=== PATIENT | female | born 1940 | race Caucasian/White ===

== ENCOUNTER 2023-10-30 23:47 | Emergency (ER) | payer OTHER, SELFPAY ==
[2023-10-31 00:02] VITALS: BP 181/85
[2023-10-31 00:39] LABS: % Basophils 0.3 % (0-2); % Eosinophils 0.3 % (0-6); % Immature Granulocytes 0.3 % (0-0.5); % Monocytes 3.6 % (1.7-9.3); % Neutrophils 74.5 % (42.2-75.2); Absolute Lymphocytes 2.2 10^3/uL (1.2-3.4); Absolute Monocytes 0.4 10^3/uL (0.1-0.6); Absolute Neutrophils 7.9 10^3/uL (1.4-6.5); Hematocrit 38.7 % (37.0-47.0); Mean Corp Hgb Conc. 33.6 g/dL (33.0-37.0); Mean Corpuscular Hgb 29.5 pg (27.0-31.0); Mean Corpuscular Volume 87.8 fL (81.0-99.0); Mean Platelet Volume 9.5 fL (7.4-10.4); Nucleated Red Blood Cells % 0 %; Platelet Count 273 10^3/uL (130-400); Red Blood Cell Count 4.41 10^6/uL (4.20-5.40); Red Cell Dist. Width 13.6 % (11.5-14.5); White Blood Cell Count 10.6 10^3/uL (4.8-10.8)
--- NOTE | 2023-10-31 00:39 | ED.GENMED ---
History of Present Illness
<IBIS Greer - Last Filed: 10/31/23 04:42>
General
Chief Complaint: Abdominal Symptoms
Source: patient
Exam Limitations: none
Time Seen by Provider: 10/31/23 00:39
Nursing documentation reviewed up to this point in time: agreed with
History of Present Illness
History of Present Illness:
83 year old female presents for evaluation of intractable vomiting. 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 She reports that she was previously prescribed medical marijuana for shoulder pain, and slowly developed cyclical
vomiting over the last several years as a result. She used marijuana approximately 1 year ago which resulted in similar vomiting symptoms. Pt endorses marijuana use 48 hours ago which has resulted in intractable vomiting with 10+ bouts of vomiting
reported. Pt has been unable to keep solids and liquids down over this time. She has not taken any medications for her sx. She currently endorses mild epigastric abdominal pain and nausea. Denies fever, SOB, CP, changes in stool, and urinary sx.
Past History
<IBIS Greer - Last Filed: 10/31/23 04:42>
Past History
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
ED Past Surgical History: Appendectomy, Cardiac (Stents X 4), Cholecystectomy, Orthopedic (Right shoulder replacement), Urological and Other (tummy Tuck, Breast reduction)
Social History
Tobacco: Non-smoker
Alcohol: None
Drug: Marijuana
Personal:
Living: with family
Employment: Retired
Family History
Family History: Other (Noncontributory)
Review of Systems
<IBIS Greer - Last Filed: 10/31/23 04:42>
Review of Systems
Allergies reviewed?: Yes
Constitutional: Reports no symptoms
EENT: Reports no symptoms
Respiratory: Reports no symptoms
Cardiac: Reports no symptoms
ABD/GI: Reports abdominal pain, nausea and vomiting
: Reports no symptoms
Musculoskeletal: Reports no symptoms
Skin: Reports no symptoms
Neurological: Reports no symptoms
Endocrine: Reports no symptoms
Hematologic/Lymphatic: Reports no symptoms
Psychiatric: Reports no symptoms
Phy Exam
<ST PercyIA - Last Filed: 10/31/23 04:42>
General Physical Exam
General Presentation: well appearing
General age: appears stated age
General Skin: warm
General Habitus: normal
General Mental: alert
General Hydration: dry mucous membranes (mildly dry oral mucosa )
Cardiovascular Exam
Cardiovascular Exam: regular rate/rhythm
Pulmonary Exam
Pulmonary Exam: lungs clear and no respiratory distress
Gastrointestinal Exam
Gastrointestinal Exam: normal bowel sounds, non distended and no masses
Palpation: generalized: Minimal tenderness
Neurological Exam
Neurological Exam: alert and oriented x3
Skin Exam
Skin Exam: normal color and other (mildly dry oral mucosa )
Course
<ST PercyIA - Last Filed: 10/31/23 04:42>
Orders/Labs/Results
Orders:
Orders
10/31/23 00:09
Complete Blood Count/With Diff Urgent
Comprehensive Metabolic Panel Urgent
10/31/23 00:59
0.9% Sodium Chloride 1000 ml [Nss] 1,000 ml IV BOLUS
Abnormal Lab Results
10/31/23
00:09
Absolute Neuts (auto) 7.9 H 10^3/uL
(1.4-6.5)
Carbon Dioxide 19 L mmol/L
(22-30)
Glucose 165 H mg/dl
(70-99)
Calcium 10.3 H mg/dl
(8.4-10.2)
Albumin 5.1 H g/dl
(3.5-5.0)
10/31/23 00:09
10/31/23 00:09
Vital Signs
Initial and Last Documented VS:
Initial Vital Signs
Temp Pulse Resp BP Pulse Ox
99.2 F 82 20 181/85 96
10/31/23 00:02 10/31/23 00:02 10/31/23 00:02 10/31/23 00:02 10/31/23 00:02
Last Documented Vital Signs
Temp Pulse Resp BP Pulse Ox
99.2 F 74 14 169/81 95
10/31/23 00:02 10/31/23 03:15 10/31/23 03:15 10/31/23 01:00 10/31/23 01:00
<Larry Jenkins, DO - Last Filed: 10/31/23 03:36>
Orders/Labs/Results
Orders:
Orders
10/31/23 00:09
Complete Blood Count/With Diff Urgent
Comprehensive Metabolic Panel Urgent
10/31/23 00:59
0.9% Sodium Chloride 1000 ml [Nss] 1,000 ml IV BOLUS
Abnormal Lab Results
10/31/23
00:09
Absolute Neuts (auto) 7.9 H 10^3/uL
(1.4-6.5)
Carbon Dioxide 19 L mmol/L
(22-30)
Glucose 165 H mg/dl
(70-99)
Calcium 10.3 H mg/dl
(8.4-10.2)
Albumin 5.1 H g/dl
(3.5-5.0)
10/31/23 00:09
10/31/23 00:09
Vital Signs
Initial and Last Documented VS:
Initial Vital Signs
Temp Pulse Resp BP Pulse Ox
99.2 F 82 20 181/85 96
10/31/23 00:02 10/31/23 00:02 10/31/23 00:02 10/31/23 00:02 10/31/23 00:02
Last Documented Vital Signs
Temp Pulse Resp BP Pulse Ox
99.2 F 74 14 169/81 95
10/31/23 00:02 10/31/23 03:15 10/31/23 03:15 10/31/23 01:00 10/31/23 01:00
<IBIS Greer - Last Filed: 10/31/23 04:42>
MDM/Problems Addressed
Differential Diagnosis Includes:
cyclical vomiting, cannabinoid hyperemesis syndrome
<IBIS Greer - Last Filed: 10/31/23 04:42>
*Critical Care Note
Total Time (30-74mins, 75-104mins- exclusive of procedures): Not Applicable
ED Attending Note
<IBIS Greer - Last Filed: 10/31/23 04:42>
-
Portions of this chart may have been created with voice recognition software.� Occasional wrong word or��sound alike� substitutions may have occurred due to the inherent limitations of voice recognition software.
<Larry Jenkins DO - Last Filed: 10/31/23 03:36>
ED Attending Note
Patient seen and examined by attending physician: Yes
I performed the substantive portion of visit, reviewed & personally made and approve the management plan that is documented in note by myself or KATIE.: Yes
ED Attending Note:
83-year-old female presents with intractable vomiting. Patient smoked marijuana to celebrate her birthday. She does have a history of cyclical vomiting due to her marijuana use. She last used marijuana 1 year ago and at that time she did
experience vomiting. Patient states that she has had multiple bouts of vomiting after her most recent use. Denies chest pain or shortness of breath. Patient was seen in conjunction with the PA student. I have reviewed and agree with his history
and treatment plan. On my independent physical exam patient is awake, alert, and oriented. Patient states that her nausea has improved. She is tolerating liquids. She has urinated. Patient to be discharged home
Discharge Plan
Departure
Patient Disposition: Home (Routine Discharge)
Date of Disposition: 10/31/23
Time of Disposition: 03:36
Patient with high blood pressure during this ER visit?: Yes
Condition: Good
Discharge Problem:
Marijuana use, Nausea and vomiting
Instructions: Nausea and Vomiting, Adult (DC), Cannabis use disorder
Prescriptions:
No Action
lisinopril 20 MG tablet
20 mg PO BID
amlodipine 5 MG tablet
5 mg PO DAILY
levothyroxine 75 MCG tablet
75 mcg PO DAILY AT 0700
rosuvastatin 20 MG tablet
20 mg PO HS
potassium chloride 8 MEQ capsule, extended release
8 meq PO DAILY
fluoxetine 20 MG capsule
20 mg PO DAILY
clonazepam 0.5 MG tablet
0.5 mg PO BID
quetiapine 25 mg Tablet
25 mg PO DAILY
pregabalin 50 mg Capsule
50 mg PO BID
azelastine 137 mcg (0.1 %) Aerosol,[place]
1 spray intranasal BID
Rx Instructions:
both nostrils
pantoprazole 40 mg Tablet,Delayed Release (Dr/Ec)
40 mg PO DAILY 30 Days Qty: 30 0RF
mirtazapine 15 mg Tablet,Disintegrating
7.5 mg PO HS 30 Days Qty: 15 0RF
Rx Instructions:
1/2 tablet nightly x 30 days
prochlorperazine maleate [Compazine] 5 mg tablet
5 mg PO TID PRN (Reason: nausea and vomiting) 10 Days Qty: 30 0RF
acetaminophen [Tylenol] 325 mg tablet
650 mg PO Q4H Qty: 30 0RF
lidocaine 5 % adhesive patch,medicated
1 patch topical DAILY Qty: 30 0RF
Referrals:
Francois Thomas MD [Family Provider] -
Activity Restrictions/Additional Instructions:
It was a pleasure meeting you and taking part in your care. We hope for your continued healing and wellness.
Please read discharge instructions in their entirety. However, they are for general education and may not describe your exact diagnosis at discharge. Information on your ER visit and medical conditions were discussed with you along with appropriate
follow up information...
If indicated, please take your medications as instructed and indicated on discharge paperwork.
Please schedule a follow up appointment as directed. Call to schedule an appointment
Please return to the emergency department with ANY change in, persisting, or worsening of symptoms. If any of your symptoms do not improve, or persist, or become more severe within 6-12 hours, please return to the emergency department for further
care.
Please return to the emergency department if you develop a headache, neck pain/stiffness, fever greater than 100.4F, chest pain, shortness of breath, persistent nausea, vomiting, slurred speech, difficulty walking, numbness/tingling, weakness, signs
of infection or any other symptoms that are worrisome to you.
If you have any questions or concerns please do not hesitate to call the Hospital at
Interventions
Interventions:
*Risk Screen - Suicide Last Done: 10/31/23 00:02
*General Assessment Last Done: 10/31/23 00:02
*Neglect/Abuse Screening Last Done: 10/31/23 00:02
ED- Fall Risk Assessment Last Done: 10/31/23 00:02
*ED COVID-19 Vaccine History Last Done: 10/31/23 00:02
WD-Tazwsh-Anxzmeqhww Assessment Last Done: 10/31/23 01:02
Discharge Date and Time
Print Language: UKRAINIAN
[2023-10-31 00:42] LABS: ALT (SGPT) 12 U/L (0-35); AST (SGOT) 27 U/L (14-36); Alkaline Phosphatase 69 U/L (38-126); Calcium 10.3 mg/dl (8.4-10.2); Chloride 103 mmol/L (98-107); Glucose 165 mg/dl (70-99); Sodium 137 mmol/L (135-145); Total Bilirubin 0.8 mg/dl (0.2-1.3); Total Protein 7.7 g/dl (6.3-8.2); eGFR > 60.00
[2023-10-31 00:55] LABS: Albumin 5.1 g/dl (3.5-5.0); Blood Urea Nitrogen 16 mg/dl (7-17); Carbon Dioxide 19 mmol/L (22-30)
[2023-10-31 00:58] VITALS: BP 161/70
[2023-10-31 01:00] VITALS: BP 169/81
[2023-10-31 01:02] VITALS: BMI 24.7
[2023-10-31] MEDS: NSS 1000 IV (01:14)
[2023-10-31 04:26] VITALS: BP 153/62
== END 2023-10-31 04:53 | disposition home or self-care (01) ==
LOC: EMR 23:47
PROVIDERS: EMERGENCY PHYSICIAN Student in an Organized Health Care Education/Training Program; FAMILY PHYSICIAN Family Medicine
DX: F12.90 Cannabis use, unspecified, uncomplicated (principal); R11.2 Nausea with vomiting, unspecified; I25.10 Atherosclerotic heart disease of native coronary artery without angina pectoris; I10 Essential (primary) hypertension; E78.00 Pure hypercholesterolemia, unspecified; E03.9 Hypothyroidism, unspecified; F41.9 Anxiety disorder, unspecified; Z87.442 Personal history of urinary calculi; Z90.49 Acquired absence of other specified parts of digestive tract; Z95.5 Presence of coronary angioplasty implant and graft; Z96.611 Presence of right artificial shoulder joint
CPT/HCPCS: 99283; 96360; 80053; 85025

== ENCOUNTER 2023-11-22 10:53 | Inpatient (IN) | payer OTHER, SELFPAY ==
[2023-11-22] VITALS (13 sets, daily range): BP systolic 132–208; BP diastolic 72–110; BMI 22.7; BMI 24.1
[2023-11-22 06:54] LABS: % Basophils 0.4 % (0-2); % Eosinophils 0.1 % (0-6); % Immature Granulocytes 0.5 % (0-0.5); % Lymphocytes 18.8 % (20.5-51.1); % Monocytes 4.3 % (1.7-9.3); % Neutrophils 75.9 % (42.2-75.2); Absolute Basophils 0.1 10^3/uL (0-0.2); Absolute Immature Granulocytes 0.1 10^3/uL (0-0.05); Absolute Lymphocytes 3.7 10^3/uL (1.2-3.4); Absolute Monocytes 0.8 10^3/uL (0.1-0.6); Absolute Neutrophils 14.8 10^3/uL (1.4-6.5); Hematocrit 39.1 % (37.0-47.0); Hemoglobin 13.3 g/dL (12.0-16.0); Mean Corpuscular Hgb 29.6 pg (27.0-31.0); Mean Corpuscular Volume 87.1 fL (81.0-99.0); Mean Platelet Volume 9.6 fL (7.4-10.4); Nucleated Red Blood Cells % 0 %; Platelet Count 365 10^3/uL (130-400); Red Blood Cell Count 4.49 10^6/uL (4.20-5.40); Red Cell Dist. Width 13.8 % (11.5-14.5); White Blood Cell Count 19.5 10^3/uL (4.8-10.8)
[2023-11-22 07:11] LABS: AST (SGOT) 30 U/L (14-36); Albumin 5.1 g/dl (3.5-5.0); Alkaline Phosphatase 84 U/L (38-126); Blood Urea Nitrogen 16 mg/dl (7-17); Calcium 11.2 mg/dl (8.4-10.2); Carbon Dioxide 11 mmol/L (22-30); Chloride 108 mmol/L (98-107); Estimated Creatinine Clearance 32 ml/min; Glucose 229 mg/dl (70-99); Lipase 139 U/L (23-300); Potassium 4.4 mmol/L (3.5-5.1); Sodium 141 mmol/L (135-145); Total Bilirubin 0.7 mg/dl (0.2-1.3); Total Protein 7.7 g/dl (6.3-8.2); eGFR 44.91
[2023-11-22 07:20] LABS: Troponin I < 0.012 ng/ml
--- NOTE | 2023-11-22 07:30 | ED.GENMED ---
History of Present Illness
<Timo Gutierrez PA-C - Last Filed: 11/22/23 10:27>
General
Chief Complaint: Abdominal Pain
Time Seen by Provider: 11/22/23 07:12
History of Present Illness
History of Present Illness:
83-year-old female with history of coronary artery disease, hypertension, hyperlipidemia, and anxiety presents to the emergency department for evaluation of acute onset of central chest and upper abdominal pain for the past several hours. On my
exam she cannot tell me an exact time of onset. Pain radiates to the left shoulder. She is unable to tell me whether this is comparable to past angina. She also reports nausea without vomiting. Prior abdominal surgical history includes
appendectomy, cholecystectomy, and abdominoplasty. On evaluation she is hyperventilating and moaning in pain
Past History
<Timo Gutierrez PA-C - Last Filed: 11/22/23 10:27>
Past History
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
ED Past Surgical History: Appendectomy, Cardiac (Stents X 4), Cholecystectomy, Orthopedic (Right shoulder replacement), Urological and Other (tummy Tuck, Breast reduction)
Social History
Tobacco: Non-smoker
Alcohol: None
Drug: Marijuana
Personal:
Living: with family
Employment: Retired
Family History
Family History: Other (Noncontributory)
Review of Systems
<Timo Gutierrez PA-C - Last Filed: 11/22/23 10:27>
Review of Systems
Allergies reviewed?: Yes
All Other Systems: ROS reviewed and negative except as documented in HPI and ROS
Phy Exam
<Timo Gutierrez PA-C - Last Filed: 11/22/23 10:27>
Physical Exam
Physical Exam:
GEN: Visibly uncomfortable, hyperventilating position
Eyes: PERRLA, EOMs intact, no scleral icterus
HENT: NCAT, oral mucosa moist
Lungs: CTAB, no wheezes, rales, rhonchi, normal chest wall excursion
Cardiac: Tachycardic, regular
Abdomen: Slightly distended abdomen, no rigidity, no obvious
Neuro: AO x 3, bilateral upper and lower extremity strength is 5 out of 5 in all malik and symmetric
MSK: No gross deformity or ecchymosis. Radial pulses 2+ bilaterally, dorsalis pedis pulses 2+ bilaterally
Skin: No rashes, petechiae. Normal color, no pallor or jaundice.
Psych: Calm, cooperative, proper hygiene
Course
<Timo Gutierrez PA-C - Last Filed: 11/22/23 10:27>
Orders/Labs/Results
Orders:
Orders
11/22/23 06:42
EKG [Electrocardiogram (*1)] Urgent
Reason for Study: Chest Pain
11/22/23 06:43
EKG- Treatment ONCE
11/22/23 06:45
Complete Blood Count/With Diff Urgent
Comprehensive Metabolic Panel Urgent
Lipase Urgent
Salicylate Urgent
Comment: ADDON
Troponin I Urgent
11/22/23 07:29
CT Chest/abd/pelvis Angio W/wo Urgent
Comment:
Reason For Exam: chest/abd/shoulder pain, HTN
0.9% Sodium Chloride 1000 ml [Nss] 1,000 ml IV BOLUS
HYDROmorphone [Dilaudid] 0.5 mg IV NOW STA
Ondansetron Injectable [Zofran] 4 mg IV NOW STA
11/22/23 07:45
Lactic Acid Q4H
Comment: CANCEL 2nd LACTIC ACID IF 1st LACTIC ACID IS LESS THAN 2
Venous Blood Gas Urgent
%Oxygen/Room Air: 98
11/22/23 08:13
HYDROmorphone [Dilaudid] 0.5 mg IV NOW STA
11/22/23 08:16
Add On- LAB Urgent
Tests Added?: salicylate level
11/22/23 08:38
Diphenhydramine [Benadryl] 6.25 mg IV NOW STA
Fentanyl Citrate/Pf [Sublimaze] 50 mcg IV NOW STA
11/22/23 08:53
Lactated Ringers [Lr] 1,000 ml IV BOLUS
11/22/23 08:56
Ketamine 19 mg 0.9% Sodium Chloride 50 ml [Nss] 50 ml IV NOW
11/22/23 09:05
Ketamine 19 mg 0.9% Sodium Chloride 50 ml [Nss] 50 ml IV NOW
11/22/23 09:07
Piperacillin/Tazo 3.375 Gram [Zosyn] 3.375 gram in 50 ml IV NOW
11/22/23 09:14
Consult Surgery [SURGICAL CONSULT] Urgent
Consulting Provider: Reymundo Flanagan
Was physician already notified: Yes
11/22/23 10:03
Notify MD As Directed
Notify physician if: once med rec is completed TY
11/22/23 10:22
Add On- LAB Routine
Tests Added?: B12, Mag
11/22/23 10:30
Dextrose 5%/Water 1000 ml [D5w] 1,000 ml Sodium Bicarbonate 150 meq IV 150 mls/hr
11/22/23 11:00
Lactated Ringers [Lr] 1,000 ml IV Wide Open mls/hr
11/22/23 11:30
Lactic Acid Q4H
Comment: CANCEL 2nd LACTIC ACID IF 1st LACTIC ACID IS LESS THAN 2
11/22/23 16:00
BMP [Basic Metabolic Panel] Routine
Abnormal Lab Results
11/22/23 11/22/23
06:45 07:45
WBC 19.5 H 10^3/uL
(4.8-10.8)
Abs Immat Gran (auto) 0.1 H 10^3/uL
(0-0.05)
Absolute Neuts (auto) 14.8 H 10^3/uL
(1.4-6.5)
Absolute Lymphs (auto) 3.7 H 10^3/uL
(1.2-3.4)
Absolute Monos (auto) 0.8 H 10^3/uL
(0.1-0.6)
Neutrophils % 75.9 H %
(42.2-75.2)
Lymphocytes % 18.8 L %
(20.5-51.1)
VBG pH 7.51 H
(7.32-7.43)
VBG pCO2 19 L mmHg
(35-48)
VBG pO2 114 H mmHg
(30-50)
VBG HCO3 15.2 L mmol/L
(22-27)
Chloride 108 H mmol/L
(98-107)
Carbon Dioxide 11 L* mmol/L
(22-30)
Creatinine 1.2 H mg/dL
(0.6-1.0)
Glucose 229 H mg/dl
(70-99)
Lactic Acid 6.0 H* mmol/L
(0.7-2.0)
Calcium 11.2 H mg/dl
(8.4-10.2)
Albumin 5.1 H g/dl
(3.5-5.0)
Salicylates < 1.0 L mg/dl
(2.0-20.0)
11/22/23 06:45
Vital Signs
Initial and Last Documented VS:
Initial Vital Signs
Pulse Ox
97
11/22/23 06:41
Last Documented Vital Signs
Temp Pulse Resp BP Pulse Ox
97.8 F 102 15 158/85 95
11/22/23 08:35 11/22/23 09:45 11/22/23 09:45 11/22/23 09:37 11/22/23 09:50
<Jerry Lyon MD - Last Filed: 11/22/23 09:14>
Orders/Labs/Results
Orders:
Orders
11/22/23 06:42
EKG [Electrocardiogram (*1)] Urgent
Reason for Study: Chest Pain
11/22/23 06:43
EKG- Treatment ONCE
11/22/23 06:45
Complete Blood Count/With Diff Urgent
Comprehensive Metabolic Panel Urgent
Lipase Urgent
Salicylate Urgent
Comment: ADDON
Troponin I Urgent
11/22/23 07:29
CT Chest/abd/pelvis Angio W/wo Urgent
Comment:
Reason For Exam: chest/abd/shoulder pain, HTN
0.9% Sodium Chloride 1000 ml [Nss] 1,000 ml IV BOLUS
HYDROmorphone [Dilaudid] 0.5 mg IV NOW STA
Ondansetron Injectable [Zofran] 4 mg IV NOW STA
11/22/23 07:45
Lactic Acid Q4H
Comment: CANCEL 2nd LACTIC ACID IF 1st LACTIC ACID IS LESS THAN 2
Venous Blood Gas Urgent
%Oxygen/Room Air: 98
11/22/23 08:13
HYDROmorphone [Dilaudid] 0.5 mg IV NOW STA
11/22/23 08:16
Add On- LAB Urgent
Tests Added?: salicylate level
11/22/23 08:38
Diphenhydramine [Benadryl] 6.25 mg IV NOW STA
Fentanyl Citrate/Pf [Sublimaze] 50 mcg IV NOW STA
11/22/23 08:53
Lactated Ringers [Lr] 1,000 ml IV BOLUS
11/22/23 08:56
Ketamine 19 mg 0.9% Sodium Chloride 50 ml [Nss] 50 ml IV NOW
11/22/23 09:05
Ketamine 19 mg 0.9% Sodium Chloride 50 ml [Nss] 50 ml IV NOW
11/22/23 09:07
Piperacillin/Tazo 3.375 Gram [Zosyn] 3.375 gram in 50 ml IV NOW
11/22/23 09:14
Consult Surgery [SURGICAL CONSULT] Urgent
Consulting Provider: Reymundo Flanagan
Was physician already notified: Yes
11/22/23 10:03
Notify MD As Directed
Notify physician if: once med rec is completed TY
11/22/23 10:22
Add On- LAB Routine
Tests Added?: B12, Mag
11/22/23 10:30
Dextrose 5%/Water 1000 ml [D5w] 1,000 ml Sodium Bicarbonate 150 meq IV 150 mls/hr
11/22/23 11:00
Lactated Ringers [Lr] 1,000 ml IV Wide Open mls/hr
11/22/23 11:30
Lactic Acid Q4H
Comment: CANCEL 2nd LACTIC ACID IF 1st LACTIC ACID IS LESS THAN 2
11/22/23 16:00
BMP [Basic Metabolic Panel] Routine
Abnormal Lab Results
11/22/23 11/22/23
06:45 07:45
WBC 19.5 H 10^3/uL
(4.8-10.8)
Abs Immat Gran (auto) 0.1 H 10^3/uL
(0-0.05)
Absolute Neuts (auto) 14.8 H 10^3/uL
(1.4-6.5)
Absolute Lymphs (auto) 3.7 H 10^3/uL
(1.2-3.4)
Absolute Monos (auto) 0.8 H 10^3/uL
(0.1-0.6)
Neutrophils % 75.9 H %
(42.2-75.2)
Lymphocytes % 18.8 L %
(20.5-51.1)
VBG pH 7.51 H
(7.32-7.43)
VBG pCO2 19 L mmHg
(35-48)
VBG pO2 114 H mmHg
(30-50)
VBG HCO3 15.2 L mmol/L
(22-27)
Chloride 108 H mmol/L
(98-107)
Carbon Dioxide 11 L* mmol/L
(22-30)
Creatinine 1.2 H mg/dL
(0.6-1.0)
Glucose 229 H mg/dl
(70-99)
Lactic Acid 6.0 H* mmol/L
(0.7-2.0)
Calcium 11.2 H mg/dl
(8.4-10.2)
Albumin 5.1 H g/dl
(3.5-5.0)
Salicylates < 1.0 L mg/dl
(2.0-20.0)
11/22/23 06:45
Vital Signs
Initial and Last Documented VS:
Initial Vital Signs
Pulse Ox
97
11/22/23 06:41
Last Documented Vital Signs
Temp Pulse Resp BP Pulse Ox
97.8 F 102 15 158/85 95
11/22/23 08:35 11/22/23 09:45 11/22/23 09:45 11/22/23 09:37 11/22/23 09:50
<Timo Gutierrez PA-C - Last Filed: 11/22/23 10:27>
MDM/Problems Addressed
MDM/Problems Addressed:
82-year-old female presents with severe abdominal pain and vomiting, pain appears to be out of proportion to clinical exam findings. Initial concern for mesenteric adenitis particularly reinforced with marked lactic acidosis. CT angiogram was
obtained however this was grossly unremarkable. I did discuss case with general surgery and requested consultation at the bedside regarding the patient's intractable and uncontrolled pain in the setting of lactic acidosis with concern for ischemic
condition. Patient was admitted to the hospitalist service for further management, aggressive IV fluids and pain control given the emergency department, empiric antibiotics also ordered
<Timo Gutierrez PA-C - Last Filed: 11/22/23 10:27>
Comment
Comment:
EKG independently interpreted by me is markedly limited due to patient motion artifact displays a sinus tachycardia at a rate of 107, no overt ST elevations, QTc of 461
*Critical Care Note
Total Time (30-74mins, 75-104mins- exclusive of procedures): 35 minutes
comment:
Critical care time: 35 minutes
Critical care time was exclusive of: Separately billable procedures, treating other patients, and teaching time
Critical care was necessary to treat or prevent imminent or life-threatening deterioration of the following conditions: Lactic acidosis
Critical care time spent personally by me on the following activities:
[x] Review of old charts
[x] Obtaining history from patient or surrogate
[x] Ordering and review of the laboratory studies
[x] Ordering and review of radiographic studies
[x] Ordering and performing treatments and interventions
[x] Patient patient's response to treatment
[x] Development of treatment plan with patient or surrogate
<Timo Gutierrez PA-C - Last Filed: 11/22/23 10:27>
Update Note
Update Note:
0852: Case reviewed with general surgery. Discussed presentation consistent with mesenteric ischemia, marked lactic acidosis, intractable pain. Imaging reviewed by surgery, at this time no indication for surgery given grossly unremarkable
radiological findings. Recommends aggressive IV fluid resuscitation and repeat labs. Awaiting radiology read
ED Attending Note
<Timo Gutierrez PA-C - Last Filed: 11/22/23 10:27>
-
Portions of this chart may have been created with voice recognition software.� Occasional wrong word or��sound alike� substitutions may have occurred due to the inherent limitations of voice recognition software.
<Jerry Lyon MD - Last Filed: 11/22/23 09:14>
ED Attending Note
Patient seen and examined by attending physician: Yes
ED Attending Note:
I have seen and evaluated the patient with a [id number] encounter. I have spoken to the advance practicer provider and involved in the medical history, the physical exam, medical decision making.
Evaluation and management service: agree unless noted differently below.
Results interpretation: agree unless noted differently below.
Focused HPI: 83-year-old female with past medical history of hypertension, hyperlipidemia, CAD status post stents, colitis who presents to the emergency department for evaluation of abdominal pain. Patient reports pain is 'in her navel'--points to
the periumbilical region. She says it radiates diffusely. She says it started rather abruptly a few hours ago and has been constant and quite intense since then. She reports nausea but has not had any vomiting. Denies diarrhea or constipation.
Denies urinary symptoms. Denies fever or chills. Prior surgical history of appendectomy, cholecystectomy.
Physical exam: Hypertensive, tachycardic, tachypneic. Patient appears significantly uncomfortable writhing around in the bed. Her abdomen is somewhat firm, slightly distended with some tympany. She has mild diffuse tenderness somewhat worse left
upper quadrant. Mucous membranes appear moist.
Medical Decision Makin-year-old female presents for evaluation of acute onset severe abdominal pain has been constant for the past few hours. She appears in severe pain although abdominal exam only mildly tender. Will place an IV send labs
including a CBC and a CMP, lactate. Check an EKG and troponin. Concern for bowel ischemia will send for CT angio. Pain control and fluids. Reassess after the above.
Labs reviewed: CBC shows leukocytosis to 19.5. CMP shows metabolic acidosis with bicarb of 11, lactate greater than 6. Creatinine 1.2 up from baseline 0.9. Mild hyperglycemia. Troponin undetectable. CTA no clear acute pathology but clinical
concern based on appearance, history and lab abnormalities is for bowel ischemia. She does apparently have history of colitis thought to be potentially ischemic. Case discussed with general surgery for evaluation. No plans for OR, start with
aggressive medical management with fluids and pain control.
Discharge Plan
Departure
Patient Disposition: Admit
Date of Disposition: 11/22/23
Time of Disposition: 09:02
Admit to: IMU
Presentation/result/management discussed w/ accepting MD/DO: Hospitalist
Discharge Problem:
Intractable abdominal pain, Lactic acidosis, Metabolic acidosis with respiratory alkalosis
Prescriptions:
No Action
lisinopril 20 MG tablet
20 mg PO BID
amlodipine 5 MG tablet
5 mg PO DAILY
levothyroxine 75 MCG tablet
75 mcg PO DAILY AT 0700
rosuvastatin 20 MG tablet
20 mg PO HS
potassium chloride 8 MEQ capsule, extended release
8 meq PO DAILY
fluoxetine 20 MG capsule
20 mg PO DAILY
clonazepam 0.5 MG tablet
0.5 mg PO BID
quetiapine 25 mg Tablet
25 mg PO DAILY
pregabalin 50 mg Capsule
50 mg PO BID
azelastine 137 mcg (0.1 %) Aerosol,[place]
1 spray intranasal BID
Rx Instructions:
both nostrils
pantoprazole 40 mg Tablet,Delayed Release (Dr/Ec)
40 mg PO DAILY 30 Days Qty: 30 0RF
mirtazapine 15 mg Tablet,Disintegrating
7.5 mg PO HS 30 Days Qty: 15 0RF
Rx Instructions:
1/2 tablet nightly x 30 days
prochlorperazine maleate [Compazine] 5 mg tablet
5 mg PO TID PRN (Reason: nausea and vomiting) 10 Days Qty: 30 0RF
acetaminophen [Tylenol] 325 mg tablet
650 mg PO Q4H Qty: 30 0RF
lidocaine 5 % adhesive patch,medicated
1 patch topical DAILY Qty: 30 0RF
Referrals:
UNKNOWN - PT NOT,INTERVIEWE [Family Provider] -
Interventions
Interventions:
*Risk Screen - Suicide Last Done: 11/22/23 06:37
*General Assessment Last Done: 11/22/23 06:37
*Neglect/Abuse Screening Last Done: 11/22/23 06:37
*ED COVID-19 Vaccine History Last Done: 11/22/23 06:37
KN-Wqgmce-Afqeqhevly Assessment Last Done: 11/22/23 06:41
Discharge Date and Time
Print Language: SERBIAN
[2023-11-22] MEDS: ZOFRAN 4 MG IV (07:35)
[2023-11-22] MEDS: DILAUDID 0.5 MG IV ×2 (07:35→08:17)
[2023-11-22] MEDS: NSS 1000 IV ×2 (07:42→18:45)
[2023-11-22 07:58] LABS: Venous Blood Gas B.E. -5.4 mmol/L (-4 to +4); Venous Blood Gas HCO3 15.2 mmol/L (22-27); Venous Blood Gas O2 Sat % 99.3 %; Venous Blood Gas pCO2 19 mmHg (35-48); Venous Blood Gas pH 7.51 (7.32-7.43); Venous Blood Gas pO2 114 mmHg (30-50)
[2023-11-22 08:20] LABS: ALT (SGPT) 20 U/L (0-35)
[2023-11-22 08:42] LABS: Salicylate < 1.0 mg/dl (2.0-20.0)
[2023-11-22] MEDS: BENADRYL 6.25 MG IV (08:46)
[2023-11-22] MEDS: SUBLIMAZE 50 MCG IV (08:46)
[2023-11-22] MEDS: LR 1000 IV ×2 (08:57→10:25)
[2023-11-22] MEDS: KETAMINE 51.9 MG IV (09:37)
--- NOTE | 2023-11-22 10:01 | HPS.HSE ---
Family Physician
-
Family Physician: INTERVIEWE UNKNOWN - PT NOT
Chief Complaint
-
Abdominal pain
History of Present Illness
83-year-old female presents with abdominal pain. Pain radiated to the shoulder. She stated that the pain started last night. Got worse. More than 10 out of 10. No radiation. Nothing makes it better. She had a bowel movement yesterday. Also
had several episodes of vomiting today. No fever
Medical History
Past Medical History
Past Medical History: Reports Other
Additional Past Medical History:
Migraines, coronary artery disease, hypertension, hyperlipidemia, hemorrhoids, nephrolithiasis, fibromyalgia, osteoporosis, arthritis, hypothyroidism, legally blind in right eye, anxiety and depression
Past Surgical History: Reports Other
Additional Past Surgical History:
Breast reduction surgery, laparoscopic cholecystectomy
Social History
Tobacco: Non-smoker
Alcohol: None
Drug: None
Living: With Family
Family History
Family History: CAD (Mother in her 60s)
Allergies / Home Medications
Allergies reflects when Allergies were last updated in [employer].
Home Medications with original date entered in [employer]
Allergy/Medication List:
Med rec not completed
Review of Systems
-
A 12 point ROS was completed and negative except as noted: Yes
Cardiac: Denies Chest Pain
Abdomen/GI: Reports Abdominal Pain, Nausea and Vomiting; Denies Diarrhea
Physical Exam
Vital Signs
Vital Signs
Temp Pulse Resp BP Pulse Ox
97.8 F 102 15 158/85 95
11/22/23 08:35 11/22/23 09:45 11/22/23 09:45 11/22/23 09:37 11/22/23 09:50
Physical Exam
General: Appears in Distress and Pain
Respiratory: Clear
Cardiac: S1/S2 and Regular Rhythm
GI: Soft, Tender and Distended; No Normal Bowel Sounds
Musculoskeletal: No Edema
Neuro: Awake, AO x 3 and Nonfocal/grossly intact
Psych: Anxious
Laboratory Results
-
11/22/23 06:45
11/22/23 06:45
Laboratory Results
Lactic Acid 6.0 mmol/L (0.7-2.0) H* 11/22/23 07:45
Total Bilirubin 0.7 mg/dl (0.2-1.3) 11/22/23 06:45
AST 30 U/L (14-36) 11/22/23 06:45
ALT 20 U/L (0-35) 11/22/23 06:45
Alkaline Phosphatase 84 U/L (38-126) 11/22/23 06:45
Troponin I < 0.012 ng/ml 11/22/23 06:45
Lipase 139 U/L (23-300) 11/22/23 06:45
Data Reviewed
-
CT Scan: Report Reviewed by me (CAT scan chest abdomen [id number] aortic aneurysm or dissection. Mixed density atherosclerotic plaque throughout the thoracic and abdominal aorta. Coronary artery calcifications. Small hiatal hernia. 3
prominent nonobstructing calculi within the right renal hilum lower pole 1.2 cm. Diffuse o)
Impression/Plan
-
IMPRESSION/PLAN:
# Acute onset of abdominal pain
Metabolic acidosis likely secondary to lactic acidosis
IV fluids with bicarb
No evidence of vascular compromise on CT
Similar presentation in 2021
At that time it was felt to be secondary to cannabis hyperemesis
Concern for eccentric ischemia with elevated lactate
Follow-up with aggressive IV fluids, pain control
Follow labs
Surgery has already been consulted
# Acute kidney injury-continue IV fluids and follow creatinine
# Coronary artery disease with history of stents-unclear why she is not on aspirin will add. Continue aspirin and statin
# Hypertension-takes lisinopril and amlodipine as outpatient. Hold to keep blood pressure elevated for better perfusion
# Anxiety and depression-clonazepam, Remeron, Seroquel and fluoxetine
# Chronic pain with fibromyalgia-on Lyrica
# Hyperlipidemia/atherosclerosis-statin
# Insomnia-continue Remeron
# Hypothyroidism-continue Synthroid
# Osteopenia with compression deformity T6
# Nephrolithiasis
# Hiatal hernia
# Ex-smoker
# DVT prophylaxis- Lovenox
# CODE STATUS-full code
Meds need to be verified and reconciled.
Discussed with surgeon in detail
Discussed with ER provider
Discussed with nurse at bedside
Spoke to and updated regarding the plan.
Time over 75 min
[2023-11-22] MEDS: ZOSYN 50 IV ×3 (10:29→21:15)
[2023-11-22] MEDS: ATIVAN 0.25 MG IV (10:56)
[2023-11-22] MEDS: MORPHINE SULFATE 4 MG IV ×3 (10:57→21:15)
[2023-11-22 11:00] LABS: Magnesium 1.8 mg/dl (1.6-2.3)
[2023-11-22] MEDS: OFIRMEV 100 IV (11:04)
--- NOTE | 2023-11-22 11:18 | CM ---
Cm attempted to meet with patient to do IA but she was in too much pain. CM spoke to spouse, Bhupinder and dgtr in [place].
Prior to admit patient independent. Lives with spouse in one level condo with elevator access.
PCP Dr. Francois Thomas
Daren Hernandez
Patient's spouse is blind. tr states patient has been to [facility] recently for similar pain issues.
CM to follow for discharge needs.
PLAN: home .
--- NOTE | 2023-11-22 11:27 | CON.GS ---
Consultation
-
Reason for Consultation: Abdominal pain
Medical History
-
Chief Complaint: Abdominal pain
History of Present Illness:
Patient is an 83-year-old female who presents to the emergency department the acute onset of abdominal pain awakening her from sleep early this a.m. at approximately 5. History obtained through discussions with the patient and her via phone
call.
Her states that his complains of abdominal pain on a daily basis for many years now. She also has intermittent nausea and vomiting. He states that they have been unsure as to the etiology of her symptoms and so she just lives with it.
She takes multiple agents to help her sleep per her and therefore this enables her to sleep through her abdominal pain overnight. When she awoke this a.m. at 5:45 she felt as though her abdomen was distended, diffusely painful and had
intractable nausea and vomiting prompting emergency department evaluation.
Patient seen and examined and at this time she states that her pain continues essentially similar to presentation not worse but also not much better. She describes it as a constant pain in the center of the abdomen and feeling bloated/distended.
She has nausea and had small volume of vomiting. Last bowel movement was yesterday. states that she suffers from chronic constipation as well but patient states that for the past few weeks her bowels have been moving more regularly with
MiraLAX.
She states that this does feel similar to her episode back in 2021 when she was hospitalized for presumed ischemic colitis.
Past Medical History
Past Medical History: Other (Hypertension, hyperlipidemia, history of hemorrhoids, history of nephrolithiasis, fibromyalgia, osteoporosis, arthritis, hypothyroidism, legally blind in the right eye, anxiety/depression, previous history of cannabis
use patient's states in the last 6 months, gastroparesis?)
Past Surgical History: Cholecystectomy and Other (Appendectomy as a child, breast reduction)
Social History
Drug: Marijuana (Chronic cannabis user for many years however states she stopped 6 months ago)
Living: With Family
Family History
Family History: Reviewed & Noncontributory
Allergies / Home Medications
Allergy/AdvReac Type Severity Reaction Status Date / Time
codeine Allergy Unknown Itching Verified 10/31/23 00:02
�Medication �Instructions �Recorded �Confirmed �Type
amlodipine 5 mg tablet 5 mg PO DAILY Blood pressure 01/10/20 12/04/21 History
levothyroxine 75 mcg tablet 75 mcg PO DAILY AT 0700 Thyroid 01/10/20 12/06/21 History
lisinopril 20 mg tablet 20 mg PO BID Blood pressure 01/10/20 12/04/21 History
rosuvastatin 20 mg tablet 20 mg PO HS High cholesterol 01/10/20 12/04/21 History
fluoxetine 20 mg capsule 20 mg PO DAILY Mental 08/01/20 12/04/21 History
Health/Anxiety
potassium chloride 8 mEq 8 meq PO DAILY Electrolyte 08/01/20 12/04/21 History
capsule,extended release Repletion
clonazepam 0.5 mg tablet 0.5 mg PO BID Mental Health/Anxiety 01/21/21 12/06/21 History
azelastine 137 mcg (0.1 %) nasal 1 spray intranasal BID Allergies 12/04/21 12/06/21 History
spray
pregabalin 50 mg capsule 50 mg PO BID Neurological Condition 12/04/21 12/04/21 History
quetiapine 25 mg tablet 25 mg PO DAILY Mental 12/04/21 12/06/21 History
Health/Anxiety
mirtazapine 15 mg disintegrating 7.5 mg (1/2 x 15 mg) PO HS 30 days 12/07/21 Rx
tablet #15 tabs
pantoprazole 40 mg tablet,delayed 40 mg PO DAILY 30 days #30 tabs 12/07/21 Rx
release
prochlorperazine maleate 5 mg 5 mg PO TID PRN nausea and 12/07/21 Rx
tablet (Compazine) vomiting 10 days #30 tabs
acetaminophen 325 mg tablet 650 mg (2 x 325 mg) PO Q4H #30 tabs 03/02/23 Rx
(Tylenol)
lidocaine 5 % topical patch 1 patch topical DAILY #30 ea 03/02/23 Rx
Review of Systems
-
Unable to obtain full review of systems at this time due to: Acuity (Limited review of systems secondary to acute illness)
History Source: Patient
A 10 point review of systems was completed, and was negative except as per HPI.
Physical Exam
Vital Signs
Temp Pulse Resp BP Pulse Ox
97.8 F 112 21 161/77 95
11/22/23 08:35 11/22/23 10:45 11/22/23 10:45 11/22/23 10:30 11/22/23 10:45
11/21/23 11/22/23 11/23/23
06:59 06:59 06:59
Actual Weight 61.9 kg
Body Mass Index (BMI) 22.7
Lab Results
11/22/23 06:45
WBC 19.5 10^3/uL (4.8-10.8) H 11/22/23 06:45
Hgb 13.3 g/dL (12.0-16.0) 11/22/23 06:45
Hct 39.1 % (37.0-47.0) 11/22/23 06:45
Plt Count 365 10^3/uL (130-400) 11/22/23 06:45
Abs Immat Gran (auto) 0.1 10^3/uL (0-0.05) H 11/22/23 06:45
Neutrophils % 75.9 % (42.2-75.2) H 11/22/23 06:45
Physical Exam
General: Well Developed and Other (Acutely ill-appearing, uncomfortable but able to participate with history taking)
HEENT: Normocephalic, Anicteric and Moist Mucous Membranes
Respiratory: Non Labored Respirations
Cardiac: Regular Rhythm (Sinus tachycardia)
GI: Soft, Tender (Mildly diffusely tender but do not detect rebound, rigidity or guarding particularly with distraction during discussions. No involuntary guarding either.) and Distended (Patient is a bit distended and tight but she has
abdominoplasty which may account for some of these examination findings.)
Skin: Warm
Neuro: AO x 3
Psych: Calm
Data Reviewed
-
CT Scan: Image Personally Visualized and interpreted, Report Reviewed by me, Discussed with Physician, Discussed with Patient and Discussed with Family
Labs: Labs Reviewed by me, Discussed with Physician, Discussed with Patient and Discussed with Family
Assessment / Plan
-
Assessment: 83-year-old female with acute on what appears to be chronic abdominal pain with intractable nausea vomiting.
Reviewing outpatient medical record she may carry diagnosis of gastroparesis which is listed in the past having been diagnosed with this 4-5 yrs ago at [facility] however her and her did not confirm this.
Uncertain etiology to acute abdominal pain with metabolic acidosis but possible low flow state with reversible mesenteric ischemia. Carefully reviewed CT imaging. No thrombus within abdominal aorta and mesenteric vasculature all appear patenent.
No bowel wall thickening or edema of either SB or colon or stomach. No pneumatosis. No free air. No mesenteric or portal venous gas.
There does not appear to be any readily defined bowel compromise or immediate threat to warrant surgical intervention. Patient's examination is a bit distractible during our discussions and does not exhibit general peritonitis or involuntary
guarding.
Plan: Aggressive IV fluid resuscitation
Follow-up laboratory testing to guide resuscitation efforts
Recommend placement of a March catheter to monitor adequate I's and O's again and guide resuscitation efforts
Empiric antibiotics for possible GI source of transient mesenteric ischemia
Bowel rest
Will continue to closely follow
Lengthy discussions with patient's via phone call reviewing surgical impressions and plan as outlined above.
[2023-11-22 11:34] LABS: Lactic Acid 3.8 mmol/L (0.7-2.0)
[2023-11-22 12:59] LABS: Vitamin B12 338 pg/ml (239-931)
[2023-11-22] MEDS: SODIUM BICARBONATE 1150 MEQ IV (13:09)
--- NOTE | 2023-11-22 15:49 | W.PN.UPDATE ---
Update Note
Progress Note Update
Lactate noted improving.
Continue IVF and check labs at 4 pm.
[2023-11-22 16:35] LABS: Lactic Acid 1.5 mmol/L (0.7-2.0)
[2023-11-22 16:38] LABS: Blood Urea Nitrogen 13 mg/dl (7-17); Calcium 9.4 mg/dl (8.4-10.2); Carbon Dioxide 28 mmol/L (22-30); Chloride 103 mmol/L (98-107); Estimated Creatinine Clearance 41 ml/min; Glucose 163 mg/dl (70-99); Potassium 3.9 mmol/L (3.5-5.1); Sodium 136 mmol/L (135-145); eGFR > 60.00
[2023-11-22] MEDS: LOVENOX 40 MG SC (17:15)
[2023-11-22] MEDS: SODIUM BICARBONATE IV (18:29)
--- NOTE | 2023-11-22 20:45 | PTCARENOTE ---
Patient had orders for IMU status when admitted from ED. Patient with branch library clerk in place upon change of shift. Notified KEM Andino of orders for IMU level of care upon admission, came to see patient at bedside and orders were placed for
telemetry/monitored bed for patient, staying in 319-1 and stable. Patient on branch library clerk #[id number] running SR/ST. IVFs and IV abx maintained per MD orders. Call yadav within reach, will continue to monitor.
[2023-11-22] MEDS: MELATONIN 5 MG PO (21:53)
[2023-11-22] MEDS: SEROQUEL 25 MG PO (21:53)
--- NOTE | 2023-11-22 23:30 | PTCARENOTE ---
Temp 100.1 - asymptomatic, patient comfortable in bed and reporting that she is feeling slightly better now than at the start of our shift. Temp recheck 99.9. Will monitor.
[2023-11-23] VITALS (7 sets, daily range): BP systolic 113–162; BP diastolic 62–82; PULSE 61
[2023-11-23] MEDS: ZOSYN 50 IV ×4 (01:23→20:40)
[2023-11-23] MEDS: NSS 1000 IV ×2 (05:08→17:31)
[2023-11-23] MEDS: PROZAC 20 MG PO (09:27)
[2023-11-23] MEDS: MORPHINE SULFATE 4 MG IV (09:30)
--- NOTE | 2023-11-23 10:33 | W.PN.GS2 ---
Addendum entered and electronically signed by Reymundo Flanagan MD 11/23/23 10:53:
pt seen and examined with DEMAND PLANNING MANAGER, agree with documented progress note
pt states she feels much better
nausea resolving, denies abdominal pain.
not much appetite yet, no flatus or BM yet
AFVSS
NAD AAOx3
ABD: softly distended, completely nontender today
A/P: 83-year-old female who initially presented with acute on chronic abdominal pain, intractable nausea vomiting and metabolic/lactic acidosis.
questionable diagnosis reversible mesenteric ischemia although CT imaging without any GI pathologic findings
History of chronic abdominal pain, chronic nausea and possible gastroparesis
Clinical improvement and resolution of acidosis with resuscitation
Resume clear liquid diet and monitor for returning GI function
Original Note:
Today's Communication / Plan
-
CLD
Assessment / Plan
-
83-year-old female with acute on what appears to be chronic abdominal pain with intractable nausea vomiting.
Reviewing outpatient medical record she may carry diagnosis of gastroparesis which is listed in the past having been diagnosed with this 4-5 yrs ago at [facility] however her and her did not confirm this.
Uncertain etiology to acute abdominal pain with metabolic acidosis but possible low flow state with reversible mesenteric ischemia. CT without acute/concerning findings
Abdominal symptoms much improved with fluids/supportive care. Mild distention persists
Plan:
Trial of clear liquids
Empiric antibiotics for possible GI source of transient mesenteric ischemia
IVF as per primary team
Subjective Data
-
Date of Service: November 23, 2023
Patient seen and examined at bedside with Dr. Flanagan. Denies pain. Denies n/v. Passing flatus. No appetite as of yet.
Objective Data
-
Intake and Output
11/22/23 11/23/23 11/24/23
06:59 06:59 06:59
Intake Total 3250 / 3250
Output Total 2900 / 2900
Balance 350 / 350
Intake:
Oral fluids 0 / 0
IV fluids (Total) 3050 / 3050
IV piggybacks 200 / 200
Output:
Urine, March 2900 / 2900
Other:
How many times incontinent 1
SATURATED amount urine
Vital Signs
Temp Pulse Resp BP Pulse Ox
98.8 F 71 18 113/66 92
11/23/23 07:30 11/23/23 07:30 11/23/23 07:30 11/23/23 07:30 11/23/23 07:30
Calcium 9.4 mg/dl (8.4-10.2) D 11/22/23 16:16
Magnesium 1.8 mg/dl (1.6-2.3) 11/22/23 06:45
Total Bilirubin 0.7 mg/dl (0.2-1.3) 11/22/23 06:45
AST 30 U/L (14-36) 11/22/23 06:45
ALT 20 U/L (0-35) 11/22/23 06:45
Alkaline Phosphatase 84 U/L (38-126) 11/22/23 06:45
Total Protein 7.7 g/dl (6.3-8.2) 11/22/23 06:45
Albumin 5.1 g/dl (3.5-5.0) H 11/22/23 06:45
Physical Exam
-
NAD
ABD soft, nt, mildly distended
[2023-11-23 11:14] LABS: Calcium 8.3 mg/dl (8.4-10.2); Carbon Dioxide 24 mmol/L (22-30); Estimated Creatinine Clearance 46 ml/min; Magnesium 1.4 mg/dl (1.6-2.3); Potassium 2.9 mmol/L (3.5-5.1); eGFR > 60.00
[2023-11-23 11:24] LABS: Blood Urea Nitrogen 7 mg/dl (7-17); Chloride 108 mmol/L (98-107); Glucose 91 mg/dl (70-99); Sodium 137 mmol/L (135-145)
[2023-11-23 11:36] LABS: Hematocrit 30.7 % (37.0-47.0); Hemoglobin 10.2 g/dL (12.0-16.0); Mean Corp Hgb Conc. 33.2 g/dL (33.0-37.0); Mean Corpuscular Hgb 29.9 pg (27.0-31.0); Mean Platelet Volume 9.6 fL (7.4-10.4); Platelet Count 200 10^3/uL (130-400); Red Blood Cell Count 3.41 10^6/uL (4.20-5.40); Red Cell Dist. Width 13.6 % (11.5-14.5); White Blood Cell Count 7.2 10^3/uL (4.8-10.8)
[2023-11-23] MEDS: MAGNESIUM SULFATE 50 IV (11:58)
[2023-11-23] MEDS: KCL 270 MEQ IV (11:58)
--- NOTE | 2023-11-23 12:56 | W.PN.HOSP.TC ---
Today's Communication/Plan
-
Clear liquid diet
Cut back on IV fluids
Replace magnesium and potassium
Encourage out of bed
Assessment / Plan
Assessment / Plan
CVS: S1-S2 normal
Chest: CTA B/L
Abdomen: Soft, NT / Bowel sounds present
Extremities: No edema, normal pulses
# Acute onset of abdominal pain
Metabolic acidosis likely secondary to lactic acidosis
No evidence of vascular compromise on CT
Similar presentation in 2021
At that time it was felt to be secondary to cannabis hyperemesis. Patient does not use anymore.
Concern for eccentric ischemia with elevated lactate
Abdominal exam is completely back to normal today. Labs are normal also
Surgery eval appreciated
Clear liquids started
# Hypokalemia and hypomagnesemia-replace
# Acute kidney injury-Resolved , continue lower rate IV fluids and follow creatinine
# Coronary artery disease with history of stents-unclear why she is not on aspirin will add. Continue aspirin and statin
# Hypertension-takes lisinopril and amlodipine as outpatient. Hold to keep blood pressure elevated for better perfusion
# Anxiety and depression-clonazepam, Remeron, Seroquel and fluoxetine
# Chronic pain with fibromyalgia-on Lyrica
# Hyperlipidemia/atherosclerosis-statin
# Insomnia-continue Remeron
# Hypothyroidism-continue Synthroid
# Osteopenia with compression deformity T6
# Nephrolithiasis
# Hiatal hernia
# Ex-smoker
# DVT prophylaxis- Lovenox
# CODE STATUS-Full code
Called - NO VM set up.
Spoke to daughter Grisel .
Anticipated Discharge: 24 - 48 hours
Subjective/Interval History
-
Date of Service: November 23, 2023
Objective Data
-
Labs:
Laboratory Results
11/23/23
10:25
WBC 7.2
Hgb 10.2 L D
Hct 30.7 L
Plt Count 200 D
Sodium 137
Potassium 2.9 L D
Chloride 108 H
Carbon Dioxide 24
BUN 7
Creatinine 0.8
Glucose 91
Calcium 8.3 L
Vital Signs:
Vital Signs
Temp Pulse Resp BP Pulse Ox
98.4 F 72 18 145/67 92
11/23/23 11:33 11/23/23 11:33 11/23/23 11:33 11/23/23 11:33 11/23/23 11:33
I&O
11/22/23 11/23/23 11/24/23
06:59 06:59 06:59
Intake Total 3250 / 3250
Output Total 2900 / 2900
Balance 350 / 350
[2023-11-23 13:38] LABS: Iron 133 ug/dl (37-170)
[2023-11-23 13:51] LABS: Percent Saturation 46 % (20-50); Total Iron Binding Capacity 288 ug/dl (265-497)
[2023-11-23] MEDS: ASPIR LOW (ENTERIC COATED) 81 MG PO (13:58)
[2023-11-23 15:48] LABS: Ferritin 14.2 ng/ml (11.1-264.0)
[2023-11-23] MEDS: LOVENOX 40 MG SC (17:29)
[2023-11-23] MEDS: SEROQUEL 25 MG PO (21:33)
[2023-11-24] VITALS (8 sets, daily range): BP systolic 131–177; BP diastolic 70–99; PULSE 89–104; O2SAT 96
[2023-11-24] MEDS: ZOSYN 50 IV ×4 (03:02→21:32)
[2023-11-24] MEDS: ASPIR LOW (ENTERIC COATED) 81 MG PO (08:51)
[2023-11-24] MEDS: PROZAC 20 MG PO (08:51)
[2023-11-24] MEDS: PROTONIX IV 40 MG IV ×2 (08:52→21:31)
--- NOTE | 2023-11-24 10:43 | W.PN.GS2 ---
Addendum entered and electronically signed by Rolly Claros MD 11/24/23 16:32:
I saw and examined the patient independently.
The Batteryman's note was reviewed and I agree with the note, assessment and plan except where noted below.
Comment: 83-year-old female acute on chronic abdominal pain. Clinically improving and seems to be back to her baseline.
No general surgery infection at this time.
Agree with continuing a PPI.
[place] diet.
Care per gastroenterology.
Will sign off for now, please call with any questions or concerns.
Original Note:
Today's Communication / Plan
-
Ok for bland diet
Assessment / Plan
-
83-year-old female who initially presented with acute on chronic abdominal pain, intractable nausea vomiting and metabolic/lactic acidosis. Questionable diagnosis reversible mesenteric ischemia although CT imaging without any GI pathologic findings.
Clinical improvement and resolution of acidosis with resuscitation
History of chronic abdominal pain/chronic nausea with previous cyclical vomiting and cannabinoid hyperemesis (no recent cannabis use). She reports multiple hospitalizations for the same.
AFVSS
No abdominal tenderness present, but she does report epigastric discomfort with eating and mild nausea today. No further vomiting.
--Ok for bland diet from surgical perspective
--Continue PPI
--Would recommend follow up with gastroenterology
No surgery planned. Will follow peripherally. Please call with questions concerns.
Subjective Data
-
Date of Service: November 24, 2023
Patient seen and examined at bedside with Dr. Claros. Daughter Grisel on speaker phone to assist with history. Patient notes epigastric discomfort with meals which is her baseline. Having some nausea today but minimal. No vomiting reported.
Objective Data
-
Intake and Output
11/23/23 11/24/23 11/25/23
06:59 06:59 06:59
Intake Total 3250 / 3250 1100 / 1100
Output Total 2900 / 2900 3375 / 3375
Balance 350 / 350 -2275 / -2275
Intake:
Oral fluids 0 / 0 600 / 600
IV fluids (Total) 3050 / 3050 500 / 500
IV piggybacks 200 / 200
Output:
Urine, March 2900 / 2900 3375 / 3375
Other:
How many times incontinent 1
SATURATED amount urine
Vital Signs
Temp Pulse Resp BP Pulse Ox
98 F 93 21 151/96 96
11/24/23 07:30 11/24/23 07:30 11/24/23 07:30 11/24/23 07:30 11/24/23 07:30
Lab Results
11/23/23 10:25
Calcium 8.3 mg/dl (8.4-10.2) L 11/23/23 10:25
Magnesium 1.4 mg/dl (1.6-2.3) L 11/23/23 10:25
Total Bilirubin 0.7 mg/dl (0.2-1.3) 11/22/23 06:45
AST 30 U/L (14-36) 11/22/23 06:45
ALT 20 U/L (0-35) 11/22/23 06:45
Alkaline Phosphatase 84 U/L (38-126) 11/22/23 06:45
Total Protein 7.7 g/dl (6.3-8.2) 11/22/23 06:45
Albumin 5.1 g/dl (3.5-5.0) H 11/22/23 06:45
Physical Exam
-
NAD
ABD soft, nt, nd, no rebound/rigidity/guarding
--- NOTE | 2023-11-24 10:48 | W.PN.HOSP.TC ---
Addendum entered and electronically signed by Karie Bowens MD 11/25/23 12:32:
Physical Exam
General: She is comfortable with no distress. She does not have pain.
Respiratory: Clear
Cardiac: S1/S2 and Regular Rhythm
GI: Soft, no tenderness or distention No Normal Bowel Sounds
Musculoskeletal: No Edema
Skin: No rash or bruising
Neuro: Awake, AO x 3 and Nonfocal/grossly intact
Psych: Calm and pleasant
Addendum
BP is high, will place pt back k on oral BP meds.
End
Original Note:
Today's Communication/Plan
-
Re-start Oral BP medications
Add PRN IV Hydralazine
Add IV PPI
Add PRN IV Compazine
c/w IVF
GI consult
Assessment / Plan
Assessment / Plan
CVS: S1-S2 normal
Chest: CTA B/L
Abdomen: Soft, NT / Bowel sounds present
Extremities: No edema, normal pulses
# Sepsis POA with leukocytosis/ lactic acidosis, temp at 100.1, tachycardia
Possible enteritis/ gastritis ?
Acute onset of abdominal pain, acute on chronic nausea, heartburn
Metabolic acidosis likely secondary to lactic acidosis
No evidence of vascular compromise on CT
Similar presentation in 2021
At that time it was felt to be secondary to cannabis hyperemesis. Patient does not use anymore.
Concern for eccentric ischemia with elevated lactate
Abdominal exam is non tender, not distended Labs are normal also
She reported not tolerating clear diet
Will ask GI to evaluate, she reports hx of chronic vomiting,? cyclic vomiting
No horne for surgery per surgical team
Empiric IV ABx
Add PRN IV Compazine, IV PPI
# Hypokalemia and hypomagnesemia-replace
# Acute kidney injury-Resolved , continue lower rate IV fluids and follow creatinine
# Coronary artery disease with history of stents-unclear why she is not on aspirin will add. Continue aspirin and statin
# HTN urgency
No headache or chest pain
Known primary Hypertension-takes lisinopril and amlodipine as outpatient.
Will restart her OP meds.
Add PRN Hydralazine
# Anxiety and depression-clonazepam, Remeron, Seroquel and fluoxetine
# Chronic pain with fibromyalgia-on Lyrica
# Hyperlipidemia/atherosclerosis-statin
# Insomnia-continue Remeron
# Hypothyroidism-continue Synthroid
# Osteopenia with compression deformity T6
# Nephrolithiasis
# Hiatal hernia
# Ex-smoker
# DVT prophylaxis- Lovenox
# CODE STATUS-Full code
Total time spent to see the patient, examine the patient on the floor, review data and lab results, discuss treatment plan with patient, nursing staff around 55 minutes.
Anticipated Discharge: > 48 hours
Subjective/Interval History
-
Date of Service: November 24, 2023
She reports heartburn, chronic nausea
central abdominal pain
No chest pain
Objective Data
-
Labs:
Laboratory Results
11/24/23
09:32
Sodium Pending
Potassium Pending
Chloride Pending
Carbon Dioxide Pending
BUN Pending
Creatinine Pending
Glucose Pending
Calcium Pending
Vital Signs:
Vital Signs
Temp Pulse Resp BP Pulse Ox
98 F 93 21 151/96 96
11/24/23 07:30 11/24/23 07:30 11/24/23 07:30 11/24/23 07:30 11/24/23 07:30
I&O
11/23/23 11/24/23 11/25/23
06:59 06:59 06:59
Intake Total 3250 / 3250 1100 / 1100
Output Total 2900 / 2900 3375 / 3375
Balance 350 / 350 -2275 / -5
[2023-11-24 11:29] LABS: Blood Urea Nitrogen 6 mg/dl (7-17); Calcium 9.3 mg/dl (8.4-10.2); Carbon Dioxide 19 mmol/L (22-30); Chloride 104 mmol/L (98-107); Estimated Creatinine Clearance 53 ml/min; Glucose 107 mg/dl (70-99); Magnesium 1.9 mg/dl (1.6-2.3); Potassium 3.4 mmol/L (3.5-5.1); Sodium 135 mmol/L (135-145); eGFR > 60.00
[2023-11-24] MEDS: COMPAZINE 10 MG IV (11:50)
[2023-11-24] MEDS: MAGNESIUM SULFATE 100 IV (12:10)
[2023-11-24] MEDS: NORVASC 5 MG PO (12:23)
[2023-11-24] MEDS: D5/0.9% SODIUM CHLORIDE 1000 IV (12:55)
[2023-11-24] MEDS: KCL 270 MEQ IV (12:56)
[2023-11-24] MEDS: APRESOLINE 5 MG IV (13:03)
--- NOTE | 2023-11-24 13:31 | CON.GI ---
Addendum entered and electronically signed by Zo Elizabeth MD 11/24/23 18:37:
I personally performed a history and physical exam of the patient and discussed management with the resident. I reviewed the resident's note and agree with the documented findings and plan of care HPI/CC.
83-year-old female past medical history of multiple episodes of abdominal pain, nausea, vomiting. She had a similar episode in 2021 and there was a question of ischemic colitis versus cannabinoid induced hyperemesis. She also had an endoscopy in
[address] Gong which showed a small hiatal hernia, otherwise was overall normal. She now presents with similar symptoms and there was concerned about mesenteric ischemia as she had a profound lactic acidosis. A CTA chest abdomen and pelvis
was done with no evidence of mesenteric ischemia. Surgery has seen the patient and due to the lack of CT findings, improvement in her lactic acidosis, there is no need for surgery at this time. GI was asked to help with the abdominal pain, nausea,
vomiting. I discussed with the patient and recommended upper endoscopy risks including but not limited to bleeding, infection, perforation explained to the patient as well as the daughter on the phone. I explained my rationale for recommending it
as she had ongoing symptoms and unable to be discharged and she could have an esophageal ulcer, esophagitis, gastric ulcer that could explain her symptoms. The patient and daughter declined the procedure as they want to be conservative. There was
a concern as well that her hemoglobin had dropped from 13-10 but repeat today is 13.8. She also came in with a leukocytosis which has improved. Daughter also states that patient had a recent endoscopy done but unclear when it was done or how
recently. It possibly was done at [facility] and I did request these records. At this time, we will increase her PPI to twice a day, add Carafate and see how her symptoms progress. I did discuss the option of pursuing endoscopy if she does not
improve. Another option would be doing a small bowel follow-through. Additional possible diagnosis include but not limited to gastoparesis, cyclical vomiting syndrome (previously diagnosed); no longer using MJ. She does have an outpatient
gastroenterolog the daughter was not sure of the name it is not here at [facility] and she will follow up with them upon discharge.
Original Note:
Medical History
Chief Complaint / HPI
Chief Complaint: abdominal pain
History of Present Illness:
Patient is a 83yo F with PMH of CAD (s/p stent x4), HTN, hyperlipidemia, and CVS who presented with acute on chronic upper abdominal pain and persistent nausea/vomiting. She has had these symptoms for over a year but got worse during the past 2
days. Pt had metabolic/lactic acidosis on admission which is now resolved. Abd CT was not remarkable. Seems pt had a similar episode in 2021 which was attributed to cannabis use. Patient denies using cannabis for the past 6 months.
Past Medical History
Past Medical History: CAD, Fibromyalgia, HTN, Hypercholesterolemia, Hypothyroidism and Other (Hemorrhoids, nephrolithiasis, osteoporosis)
Past Surgical History: Cholecystectomy and Other (Breast reduction surgery)
Social History
Tobacco: Non-Smoker
Alcohol: None
Drug: None
Living: With Family
Family History
Family History: CAD
Allergies / Home Medications
Allergy/AdvReac Type Severity Reaction Status Date / Time
codeine Allergy Unknown Itching Verified 10/31/23 00:02
�Medication �Instructions �Recorded
amlodipine 5 mg tablet 5 mg PO DAILY Blood pressure 01/10/20
lisinopril 20 mg tablet 20 mg PO BID Blood pressure 01/10/20
rosuvastatin 20 mg tablet 20 mg PO HS High cholesterol 01/10/20
fluoxetine 20 mg capsule 20 mg PO DAILY Mental 08/01/20
Health/Anxiety
potassium chloride 8 mEq 8 meq PO DAILY Electrolyte 08/01/20
capsule,extended release Repletion
azelastine 137 mcg (0.1 %) nasal 1 spray intranasal BIDPRN PRN 12/04/21
spray allergies
quetiapine 25 mg tablet 25 mg PO HS Mental Health/Anxiety 12/04/21
gabapentin 300 mg capsule 600 mg PO HS Neurological Condition 11/22/23
levothyroxine 50 mcg tablet 50 mcg PO DAILY Thyroid 11/22/23
zolpidem 12.5 mg tablet,extended 12.5 mg PO HSPRN PRN sleep 11/22/23
release,multiphase
pantoprazole 40 mg tablet,delayed 40 mg PO DAILY Gastrointestinal 11/23/23
release Issue
Review of Systems
-
History Source: Patient
All other systems: A 12 pt ROS was Negative except as stated above in HPI
Abdomen/GI: Reports Abdominal Pain (Upper abdominal pain and heartburn) and Nausea; Denies Vomiting
Vital Signs
Temp Pulse Resp BP Pulse Ox
98 F 91 18 177/75 96
11/24/23 11:00 11/24/23 11:00 11/24/23 11:00 11/24/23 13:03 11/24/23 11:00
Physical Exam
Exam
General: Well Developed and Pain
HEENT: Normocephalic and Anicteric
Respiratory: Clear
Cardiac: S1/S2 and Regular Rhythm
GI: Soft, Non Tender, Non Distended and Normal Bowel Sounds
Neuro: Awake, Alert, Oriented and AO x 3
Results
WBC 7.2 10^3/uL (4.8-10.8) 11/23/23 10:25
Hgb 10.2 g/dL (12.0-16.0) L D 11/23/23 10:25
Hct 30.7 % (37.0-47.0) L 11/23/23 10:25
MCV 90.0 fL (81.0-99.0) 11/23/23 10:25
Plt Count 200 10^3/uL (130-400) D 11/23/23 10:25
Absolute Neuts (auto) 14.8 10^3/uL (1.4-6.5) H 11/22/23 06:45
Sodium 135 mmol/L (135-145) 11/24/23 09:32
Potassium 3.4 mmol/L (3.5-5.1) L 11/24/23 09:32
Chloride 104 mmol/L (98-107) 11/24/23 09:32
Carbon Dioxide 19 mmol/L (22-30) L 11/24/23 09:32
BUN 6 mg/dl (7-17) L 11/24/23 09:32
Creatinine 0.7 mg/dL (0.6-1.0) 11/24/23 09:32
Calcium 9.3 mg/dl (8.4-10.2) 11/24/23 09:32
Total Bilirubin 0.7 mg/dl (0.2-1.3) 11/22/23 06:45
AST 30 U/L (14-36) 11/22/23 06:45
ALT 20 U/L (0-35) 11/22/23 06:45
Alkaline Phosphatase 84 U/L (38-126) 11/22/23 06:45
Lipase 139 U/L (23-300) 11/22/23 06:45
Diagnostic Image Results:
1.No aortic aneurysm or dissection. Mixed density atherosclerotic plaque throughout the thoracic and abdominal aorta. Coronary artery calcifications.
2. Small hiatal hernia.
3. There are 3 prominent nonobstructing calculi within the right renal hilum/lower pole measuring up to 1.2 cm, similar to prior.
4. Diffuse osteopenia with unchanged compression deformity of the T6 vertebral body.
Prior GI Procedures: Most recent EGD and colonoscopy were done at [facility].
EGD:
Colonoscopy:
Assessment / Plan
-
83 yo F with above PMH is here due to upper abdominal pain and persistent n/v.
Patient is hemodynamically stable. She complains of upper abdominal/epigastric pain and feels nauseous. No tenderness on palpation. Has not been able to tolerate clear liquids because of nausea. Does not report any bloody or coffee-ground emesis.
No melena or hematochezia. BUN is normal
Plan:
-Dr. Elizabeth spoke with patient's daughter about EGD tomorrow morning; patient's daughter declined EGD tomorrow
-Continue with clear liquids
-Checked hemoglobin; has raised to 13.8
-Continue IV PPI
-
-
Thank you for consultation and allowing me to participate in the patient's care. Please call the vocational nurse lvn GI physician during the after hours with any questions or concerns.
[2023-11-24 15:50] LABS: Hemoglobin 13.8 g/dL (12.0-16.0); White Blood Cell Count 9.3 10^3/uL (4.8-10.8)
[2023-11-24 15:51] LABS: % Basophils 0.5 % (0-2); % Immature Granulocytes 0.6 % (0-0.5); % Lymphocytes 20.7 % (20.5-51.1); % Neutrophils 72.2 % (42.2-75.2); Absolute Basophils 0.1 10^3/uL (0-0.2); Absolute Eosinophils 0.1 10^3/uL (0-0.7); Absolute Immature Granulocytes 0.1 10^3/uL (0-0.05); Absolute Lymphocytes 1.9 10^3/uL (1.2-3.4); Absolute Monocytes 0.5 10^3/uL (0.1-0.6); Absolute Neutrophils 6.7 10^3/uL (1.4-6.5); Hematocrit 41.1 % (37.0-47.0); Mean Corp Hgb Conc. 33.6 g/dL (33.0-37.0); Mean Corpuscular Hgb 29.2 pg (27.0-31.0); Mean Corpuscular Volume 86.9 fL (81.0-99.0); Mean Platelet Volume 9.6 fL (7.4-10.4); Nucleated Red Blood Cells % 0 %; Platelet Count 289 10^3/uL (130-400); Red Blood Cell Count 4.73 10^6/uL (4.20-5.40); Red Cell Dist. Width 13.5 % (11.5-14.5)
[2023-11-24] MEDS: LOVENOX 40 MG SC (17:43)
[2023-11-24] MEDS: ZESTRIL 40 MG PO (17:43)
[2023-11-24] MEDS: CARAFATE 1 GRAM PO ×2 (17:44→21:31)
--- NOTE | 2023-11-24 18:28 | W.PN.UPDATE ---
Update Note
Progress Note Update
I personally performed a history and physical exam of the patient and discussed management with the resident. I reviewed the resident's note and agree with the documented findings and plan of care HPI/CC.
83-year-old female past medical history of multiple episodes of abdominal pain, nausea, vomiting. She had a similar episode in 2021 and there was a question of ischemic colitis versus cannabinoid induced hyperemesis. She also had an endoscopy in
[address] Gong which showed a small hiatal hernia, otherwise was overall normal. She now presents with similar symptoms and there was concerned about mesenteric ischemia as she had a profound lactic acidosis. A CTA chest abdomen and pelvis
was done with no evidence of mesenteric ischemia. Surgery has seen the patient and due to the lack of CT findings, improvement in her lactic acidosis, there is no need for surgery at this time. GI was asked to help with the abdominal pain, nausea,
vomiting. I discussed with the patient and recommended upper endoscopy risks including but not limited to bleeding, infection, perforation explained to the patient as well as the daughter on the phone. I explained my rationale for recommending it
as she had ongoing symptoms and unable to be discharged and she could have an esophageal ulcer, esophagitis, gastric ulcer that could explain her symptoms. The patient and daughter declined the procedure as they want to be conservative. There was
a concern as well that her hemoglobin had dropped from 13-10 but repeat today is 13.8. She also came in with a leukocytosis which has improved. Daughter also states that patient had a recent endoscopy done but unclear when it was done or how
recently. It possibly was done at [facility] and I did request these records. At this time, we will increase her PPI to twice a day, add Carafate and see how her symptoms progress. I did discuss the option of pursuing endoscopy if she does not
improve. Another option would be doing a small bowel follow-through. She does have an outpatient gastroenterolog the daughter was not sure of the name it is not here at [facility].
[2023-11-24] MEDS: NSS IV (21:15)
[2023-11-24] MEDS: SEROQUEL 25 MG PO (21:31)
[2023-11-24] MEDS: NEURONTIN 600 MG PO (21:31)
[2023-11-24] MEDS: NSS (PRESERVATIVE FREE) 10 ML IV (21:32)
[2023-11-25 03:01] VITALS: BP 147/74
[2023-11-25] MEDS: ZOSYN 50 IV ×2 (03:03→08:22)
[2023-11-25] MEDS: D5/0.9% SODIUM CHLORIDE 1000 IV (03:07)
[2023-11-25] MEDS: SYNTHROID 50 MCG PO (05:55)
[2023-11-25 07:52] VITALS: BP 148/71
[2023-11-25 08:09] LABS: Hematocrit 34.6 % (37.0-47.0); Mean Corp Hgb Conc. 34.7 g/dL (33.0-37.0); Mean Corpuscular Hgb 30.5 pg (27.0-31.0); Mean Corpuscular Volume 87.8 fL (81.0-99.0); Mean Platelet Volume 9.7 fL (7.4-10.4); Platelet Count 209 10^3/uL (130-400); Red Blood Cell Count 3.94 10^6/uL (4.20-5.40); Red Cell Dist. Width 13.5 % (11.5-14.5); White Blood Cell Count 6.1 10^3/uL (4.8-10.8)
[2023-11-25] MEDS: ASPIR LOW (ENTERIC COATED) 81 MG PO (08:21)
[2023-11-25] MEDS: CARAFATE 1 GRAM PO (08:21)
[2023-11-25] MEDS: PROZAC 20 MG PO (08:22)
[2023-11-25] MEDS: NSS (PRESERVATIVE FREE) 10 ML IV (08:22)
[2023-11-25] MEDS: ZESTRIL 40 MG PO (08:22)
[2023-11-25] MEDS: NORVASC 5 MG PO (08:22)
[2023-11-25] MEDS: PROTONIX IV 40 MG IV (08:22)
[2023-11-25 08:30] LABS: ALT (SGPT) 27 U/L (0-35); AST (SGOT) 47 U/L (14-36); Albumin 3.9 g/dl (3.5-5.0); Alkaline Phosphatase 79 U/L (38-126); Blood Urea Nitrogen 6 mg/dl (7-17); Calcium 9.5 mg/dl (8.4-10.2); Carbon Dioxide 19 mmol/L (22-30); Chloride 110 mmol/L (98-107); Estimated Creatinine Clearance 46 ml/min; Glucose 129 mg/dl (70-99); Potassium 3.5 mmol/L (3.5-5.1); Sodium 137 mmol/L (135-145); Total Bilirubin 0.9 mg/dl (0.2-1.3); Total Protein 6.2 g/dl (6.3-8.2); eGFR > 60.00
--- NOTE | 2023-11-25 09:30 | W.DCSUMMARY ---
Discharge Summary
Discharge Data
Date of Admission: 11/22/23
Date of Discharge: 11/25/23
-
Pending Results: No
Hospital Course
83 years old female presented with acute on chronic abdominal pain. She also had nausea and vomiting. She had leukocytosis with lactic acidosis. she had hypokalemia. Questionable diagnosis of mesenteric ischemia but scan of the abdomen and pelvis
did not show acute findings. Patient was seen by Surgery. She received supportive care with intravenous fluid, empiric antibiotic. Leukocytosis and lactic acidosis resolved. Patient started to feel better. Patient complained of nausea with
heartburn. Patient had history of multiple episode of abdominal pain, nausea and vomiting. She had similar episode in 2021 with possibility of cannabinoid induced hyperemesis. She had history of endoscopy in 2020 that showed a small hiatal
hernia but otherwise normal. Tree Trimmer Helper saw the patient and suggested to repeat upper endoscopy but patient and daughter declined the procedure and they wanted to be conservative. Patient was started on Protonix pump inhibitor and that was
increased to twice a day dose. Added oral Carafate treatment. Patient started to improve with resolution of her nausea and heartburn. Patient reported history of cyclic vomiting syndrome but she was not following with regular gastroenterology
doctor. Gastroenterology doctor recommended outpatient follow-up. Patient remained hemodynamically stable. She tolerated diet well, she felt better with resolution of her symptoms. She was discharged in a stable condition.
Physical Exam
General: She is comfortable with no distress. She does not have pain.
Respiratory: Clear
Cardiac: S1/S2 and Regular Rhythm
GI: Soft, no tenderness or distention No Normal Bowel Sounds
Musculoskeletal: No Edema
Skin: No rash or bruising
Neuro: Awake, AO x 3 and Nonfocal/grossly intact
Psych: Calm and pleasant
Total discharge time spent to see the patient, examine the patient on the floor, review data and lab results, discuss discharge plan with patient, nursing staff around 65 minutes.
Discharge Plan
-
Patient Disposition: Home (Routine Discharge)
Discharge Diagnosis/Procedures: Acute abdominal pain , nausea, vomiting, low potassium, lactic acidosis, leukocytosis.
You were seen by surgery and gastroenterology doctors. You received supportive care with intravenous fluid, antibiotic, Protonix pump inhibitor and Carafate. Your symptoms resolved. White blood cell count, lactic acid and potassium came back
normal.
GI doctor recommended Carafate and Protonix twice daily for one month then follow with gI doctor or your primary care doctor. .
Diet: As tolerated
Referrals:
Francois Thomas MD [Family Provider] -
Faiza Arora DO [Active] - in one month (Call to make an appointment)
Prescriptions:
New
sucralfate 1 gram Tablet
1 g PO ACHS Qty: 120 0RF
pantoprazole [Protonix] 40 mg tablet,delayed release (DR/EC)
40 mg PO BID Qty: 60 0RF
Rx Instructions:
twice daily for one month then follow with your doctor.
Continued
lisinopril 20 MG tablet
20 mg PO BID
amlodipine 5 MG tablet
5 mg PO DAILY
rosuvastatin 20 MG tablet
20 mg PO HS
potassium chloride 8 MEQ capsule, extended release
8 meq PO DAILY
fluoxetine 20 MG capsule
20 mg PO DAILY
quetiapine 25 mg Tablet
25 mg PO HS
Patient Comments:
11/22/2023: Pt unsure if taking, last filled 10/07/23 for 90 days
azelastine 137 mcg (0.1 %) Aerosol,Tiro
1 spray intranasal BIDPRN PRN (Reason: allergies)
Rx Instructions:
both nostrils
levothyroxine 50 mcg tablet
50 mcg PO DAILY
gabapentin 300 mg capsule
600 mg PO HS
zolpidem 12.5 mg tablet,ext release multiphase
12.5 mg PO HSPRN PRN (Reason: sleep)
Patient Comments:
11/22/2023: last filled 11/18/23, 30 tabs for 30 days
Discontinued
pantoprazole 40 mg tablet,delayed release (DR/EC)
40 mg PO DAILY
Discharge Orders:
Discharge Patient (As Directed); Ordered 11/25/23
Ordered By: Karie Bowens
Discharge Date and Time
Print Language: ARMENIAN
--- NOTE | 2023-11-25 11:27 | CM ---
Reviewed chart, met with patient to review IMM. She was agreeable and signed form. Now on chart. Her daughter is picking her up this afternoon.
Plan: Case management will continue to follow and assist with discharge planning. Home with spouse.
[2023-11-25 11:48] VITALS: BP 157/77
--- NOTE | 2023-11-25 13:24 | W.PN.GI.CBS2 ---
Today's Communication / Plan
-
Patient is clear for discharge today
Assessment / Plan
-
83 yo F with above PMH is here due to upper abdominal pain and persistent n/v.
Patient is hemodynamically stable. She states her abdominal pain and nausea vomiting have completely resolved. No tenderness on palpation. Does not report any bloody or coffee-ground emesis. No melena or hematochezia. BUN is normal.
Plan:
-Patient is clear for discharge from GI standpoint
-Recommended outpatient follow-up
Subjective
Subjective
Date of Service: November 25, 2023
This is a late note. Patient was visited prior to discharge.
At the time of seeing patient, she was in good clinical condition, subjectively. Mentioned that her abdominal pain, nausea/vomiting had resolved. Last bowel movement was this morning which was nonbloody and non-tarry.
Objective
Data Reviewed
Laboratory Data:
Laboratory Results
11/25/23 07:26
11/25/23 07:26
Laboratory Results
Magnesium 2.0 mg/dl (1.6-2.3) 11/25/23 07:26
Total Bilirubin 0.9 mg/dl (0.2-1.3) 11/25/23 07:26
AST 47 U/L (14-36) H 11/25/23 07:26
ALT 27 U/L (0-35) 11/25/23 07:26
Alkaline Phosphatase 79 U/L (38-126) 11/25/23 07:26
Lipase 139 U/L (23-300) 11/22/23 06:45
Vital Signs and I&O:
Vital Signs
Temp Pulse Resp BP Pulse Ox
97.7 F 94 17 157/77 94
11/25/23 11:48 11/25/23 11:48 11/25/23 11:48 11/25/23 11:48 11/25/23 11:48
I&O
11/24/23 11/25/23 11/26/23
06:59 06:59 06:59
Intake Total 1100 / 1100 720 / 720
Output Total 3375 / 3375 1225 / 1225
Balance -2275 / -2275 -505 / -505
Physical Exam
Physical Exam
HEENT: Anicteric and Moist mucous membranes
Cardiology: Normal Sinus Rhythm, S1 and S2
Pulmonary: Clear
GI: Soft, Non Distended and Non Tender
Rectal: Brown
Extremities: No Edema
== END 2023-11-25 13:39 | disposition home or self-care (01) | DRG 392 ==
LOC: 3 WEST ACU 10:53
PROVIDERS: Physician Assistant; ADMITTING PHYSICIAN Hospitalist; ATTENDING PHYSICIAN Internal Medicine; CONSULT PHYSICIAN Surgery; EMERGENCY PHYSICIAN Emergency Medicine; FAMILY PHYSICIAN Family Medicine; OTHER PHYSICIAN Internal Medicine Gastroenterology
DX: R10.9 Unspecified abdominal pain (principal); E87.4 Mixed disorder of acid-base balance; N17.9 Acute kidney failure, unspecified; D72.829 Elevated white blood cell count, unspecified; E87.6 Hypokalemia; E03.9 Hypothyroidism, unspecified; F32.A Depression, unspecified; G47.00 Insomnia, unspecified; G89.29 Other chronic pain; N20.0 Calculus of kidney
CPT/HCPCS: 71275; 74174; 80048; 80053; 80179; 82607; 82728; 82805; 83540; 83550; 83605; 83690; 83735; 84484; 85025; 85027; 93005; 96361; 96365; 96375; 96376; 97116; 97162; 97166; 97530; 99291; Q9967

== ENCOUNTER 2024-03-10 14:48 | Emergency (ER) | payer OTHER, SELFPAY ==
[2024-03-10 14:49] VITALS: BP 110/67
[2024-03-10] MEDS: TYLENOL 1000 MG PO (16:26)
--- NOTE | 2024-03-10 17:30 | ED.GENMED ---
History of Present Illness
General
Chief Complaint: Fall
Source: patient
Exam Limitations: none
Time Seen by Provider: 03/10/24 15:58
Nursing documentation reviewed up to this point in time: agreed with
History of Present Illness
History of Present Illness:
83-year-old female with a past medical history of hypertension, hyperlipidemia, CAD status post stents, hypothyroidism who presents to the emergency room from home where she lives with her ; she presents via EMS for evaluation after a fall.
Patient reports that she had a fall at around 1 PM this afternoon. She says that she was coming back from the bathroom and went to sit down on the edge of her bed. She says that she missed the bed and she fell onto her bottom and then backwards
and struck the back of her head. She did not lose consciousness. She says she was too weak to get up on her own and called EMS from her cell phone. They recommended she come to the emergency to be evaluated. She says she feels generally sore
after the fall; she says she has some pain in her back, neck, mild headache. She reports mild pain in the left shoulder. She denies any pain in hips/legs. She denies any chest or abdominal pain. She denies any nausea or vomiting. She denies
being on any blood thinners.
Past History
Past History
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
ED Past Surgical History: Appendectomy, Cardiac (Stents X 4), Cholecystectomy, Orthopedic (Right shoulder replacement), Urological and Other (tummy Tuck, Breast reduction)
Social History
Tobacco: Non-smoker
Alcohol: None
Drug: Marijuana
Personal:
Living: with family
Employment: Retired
Family History
Family History: Other (Noncontributory)
Review of Systems
Review of Systems
All Other Systems: ROS reviewed and negative except as documented in HPI and ROS
Constitutional: Denies fever
Cardiac: Denies chest pain or palpitations
ABD/GI: Denies abdominal pain, nausea or vomiting
: Denies flank pain
Musculoskeletal: Reports joint pain (Shoulder pain), muscle pain (Achy muscles), neck pain and back pain
Neurological: Reports headache; Denies dizzy, weakness or numbness
Phy Exam
Physical Exam
Physical Exam:
General: Awake, alert, oriented x3; no acute distress
Head: Normocephalic, atraumatic
Eyes: Conjunctiva normal, pupils equal round and reactive to light bilaterally
Throat: Airway intact, handling secretions, tongue atraumatic
Neck: Trachea midline, no midline cervical spine tenderness
Back: Mild paraspinal tenderness roughly L4-L5 level in the lumbar spine; mild paraspinal tenderness roughly T5-T6 level thoracic spine; she has scoliosis; no spinal step-offs or deformities, no abrasions or ecchymosis to the back or flank
Lungs: Clear to auscultation bilaterally, no wheezing, rales, rhonchi
Heart: Regular rate and rhythm, no murmurs, gallops, or rubs appreciated; no chest wall tenderness
Abd: Soft, non distended, nontender
Neuro: No gross deficits
Extremities: Atraumatic; mild tenderness anterior left shoulder but full active range of motion of the left shoulder; no tenderness in the right upper extremity and good range of motion in all joints; no tenderness in the lower extremities and
allows for full active range of motion in both lower extremities hips, knees, ankles without pain; no edema in extremities, equal pulses in all extremities
Scores
Heart Failure Risk
Heart Failure Risk Score: Not Applicable
Heart Score for Chest Pain Patients
STEMI patient?: Not applicable
Withdrawal Assessment of Alcohol
Withdrawal Assessment Completed?: Not applicable
Course
Orders/Labs/Results
Orders:
Orders
03/10/24 16:11
CT Head W/o Iv Contrast Urgent
Comment:
Reason For Exam: fall with occipital headstrike
Acetaminophen [Tylenol] 1,000 mg PO NOW STA
CR Lumbar Spine 2 Or 3 Views Urgent
Comment:
Reason For Exam: TTP L4-5 s/p fall backwards
CR Thoracic Spine 3 Views Urgent
Comment:
Reason For Exam: TTP T5-6 s/p fall backwards
03/10/24 16:12
CT Cervical Spine W/o Iv Contr Urgent
Comment:
Reason For Exam: neck pain s/p fall
03/10/24 16:13
CR Shoulder - Left Min 2 View* Urgent
Comment:
Reason For Exam: L shoulder pain s/p fall
Vital Signs
Initial and Last Documented VS:
Initial Vital Signs
Temp Pulse Resp BP Pulse Ox
36.8 C 84 16 110/67 96
03/10/24 14:49 03/10/24 14:49 03/10/24 14:49 03/10/24 14:49 03/10/24 14:49
Last Documented Vital Signs
Temp Pulse Resp BP Pulse Ox
36.8 C 84 16 110/67 96
03/10/24 14:49 03/10/24 14:49 03/10/24 14:49 03/10/24 14:49 03/10/24 14:49
MDM/Problems Addressed
Differential Diagnosis Includes:
Headache/neck pain: Cervical strain, cervical fracture, subdural hemorrhage, subarachnoid hemorrhage
Shoulder pain: Contusion, sprain, fracture, dislocation less likely
Back pain: Fracture, muscular strain
MDM/Problems Addressed:
83-year-old female presents for evaluation after a minor fall as described above. Not on blood thinners. She did have minor head trauma no LOC. Various complaints as above. Will check CT head and cervical spine. Check x-ray of the T and
L-spine. Check shoulder x-ray on the left. Treat with Tylenol. Reassess after the above.
CT head and cervical spine negative for any acute pathology. X-rays reviewed by me no acute fracture. Patient feels bit better after Tylenol. Stable for discharge advised Tylenol and Motrin as needed. All questions answered.
*Radiology
Radiology exam reviewed: preliminary read by ED provider and radiology read reviewed
*Pulse Oximetry
Patient hypoxic: no
*Critical Care Note
Total Time (30-74mins, 75-104mins- exclusive of procedures): Not Applicable
Data Reviewed
Source: patient and ambulance crew
ED Attending Note
-
Portions of this chart may have been created with voice recognition software.� Occasional wrong word or��sound alike� substitutions may have occurred due to the inherent limitations of voice recognition software.
Discharge Plan
Departure
Patient Disposition: Home (Routine Discharge)
Date of Disposition: 03/10/24
Time of Disposition: 18:29
Patient with high blood pressure during this ER visit?: No
Discharge Problem:
Fall, Back strain, Neck strain, Left shoulder strain
Instructions: Preventing falls in adults
Prescriptions:
No Action
lisinopril 20 MG tablet
20 mg PO BID
amlodipine 5 MG tablet
5 mg PO DAILY
rosuvastatin 20 MG tablet
20 mg PO HS
potassium chloride 8 MEQ capsule, extended release
8 meq PO DAILY
fluoxetine 20 MG capsule
20 mg PO DAILY
quetiapine 25 mg Tablet
25 mg PO HS
Patient Comments:
11/22/2023: Pt unsure if taking, last filled 10/07/23 for 90 days
azelastine 137 mcg (0.1 %) Aerosol,[place]
1 spray intranasal BIDPRN PRN (Reason: allergies)
Rx Instructions:
both nostrils
levothyroxine 50 mcg tablet
50 mcg PO DAILY
gabapentin 300 mg capsule
600 mg PO HS
zolpidem 12.5 mg tablet,ext release multiphase
12.5 mg PO HSPRN PRN (Reason: sleep)
Patient Comments:
11/22/2023: last filled 11/18/23, 30 tabs for 30 days
sucralfate 1 gram Tablet
1 g PO ACHS Qty: 120 0RF
pantoprazole [Protonix] 40 mg tablet,delayed release (DR/EC)
40 mg PO BID Qty: 60 0RF
Rx Instructions:
twice daily for one month then follow with your doctor.
Referrals:
Francois Thomas MD [Family Provider] - Follow up in 2-3 days
Activity Restrictions/Additional Instructions:
Thank you for visiting the Emergency Department at [facility].
1. Please schedule a follow up appointment as directed. Call first thing tomorrow morning to make an appointment.
2. If indicated, please take your medications as instructed and indicated on discharge paperwork.
3. If any of your symptoms do not improve, or persist, or become more severe within 6-12 hours, please return to the emergency department for further care.
4. Please return to the emergency department if you develop a headache, neck pain/stiffness, fever greater than 100.4F, chest pain, shortness of breath, persistent nausea, vomiting, slurred speech, difficulty walking, numbness/tingling, weakness,
signs of infection or any other symptoms that are worrisome to you.
Please call [phone] if you have any questions.
Interventions
Interventions:
*Risk Screen - Suicide Last Done: 03/10/24 14:49
*General Assessment Last Done: 03/10/24 14:49
*Neglect/Abuse Screening Last Done: 03/10/24 14:49
*ED COVID-19 Vaccine History Last Done: 03/10/24 14:49
Discharge Date and Time
Print Language: ARABIC
[2024-03-10 18:52] VITALS: BP 149/76
[2024-03-10 18:55] VITALS: BP 149/76
== END 2024-03-10 18:58 | disposition home or self-care (01) ==
LOC: EMR 14:48
PROVIDERS: EMERGENCY PHYSICIAN Emergency Medicine; FAMILY PHYSICIAN Family Medicine
DX: S39.012A Strain of muscle, fascia and tendon of lower back, initial encounter (principal); S16.1XXA Strain of muscle, fascia and tendon at neck level, initial encounter; S46.912A Strain of unspecified muscle, fascia and tendon at shoulder and upper arm level, left arm, initial encounter; W22.03XA Walked into furniture, initial encounter; I10 Essential (primary) hypertension; E78.00 Pure hypercholesterolemia, unspecified; I25.10 Atherosclerotic heart disease of native coronary artery without angina pectoris; E03.9 Hypothyroidism, unspecified; F41.8 Other specified anxiety disorders; Z87.442 Personal history of urinary calculi; Z90.49 Acquired absence of other specified parts of digestive tract; Z95.5 Presence of coronary angioplasty implant and graft; Z96.611 Presence of right artificial shoulder joint
CPT/HCPCS: 99284; 70450; 72072; 72100; 72125; 73030

== ENCOUNTER 2024-06-24 06:18 | Emergency (ER) | payer OTHER, SELFPAY ==
[2024-06-24 06:45] LABS: % Basophils 0.3 % (0-2); % Eosinophils 1.7 % (0-6); % Immature Granulocytes 0.3 % (0-0.5); % Monocytes 7.1 % (1.7-9.3); % Neutrophils 50.6 % (42.2-75.2); Absolute Eosinophils 0.1 10^3/uL (0-0.7); Absolute Lymphocytes 2.6 10^3/uL (1.2-3.4); Absolute Monocytes 0.5 10^3/uL (0.1-0.6); Absolute Neutrophils 3.3 10^3/uL (1.4-6.5); Hematocrit 34.3 % (37.0-47.0); Mean Corp Hgb Conc. 32.1 g/dL (33.0-37.0); Mean Corpuscular Hgb 29.2 pg (27.0-31.0); Mean Platelet Volume 9.3 fL (7.4-10.4); Nucleated Red Blood Cells % 0 %; Platelet Count 229 10^3/uL (130-400); Red Blood Cell Count 3.77 10^6/uL (4.20-5.40); Red Cell Dist. Width 14.4 % (11.5-14.5); White Blood Cell Count 6.5 10^3/uL (4.8-10.8)
--- NOTE | 2024-06-24 06:45 | ED.GENMED ---
History of Present Illness
General
Chief Complaint: Abdominal Pain
Source: patient
Exam Limitations: none
Time Seen by Provider: 06/24/24 06:40
History of Present Illness
History of Present Illness:
See MDM
Past History
Past History
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
ED Past Surgical History: Appendectomy, Cardiac (Stents X 4), Cholecystectomy, Orthopedic (Right shoulder replacement), Urological and Other (tummy Tuck, Breast reduction)
Social History
Tobacco: Non-smoker
Alcohol: None
Drug: Marijuana
Personal:
Living: with family
Employment: Retired
Family History
Family History: Other (Noncontributory)
Phy Exam
Physical Exam
Physical Exam:
See MDM
Course
Orders/Labs/Results
Orders:
Orders
06/24/24 06:32
Complete Blood Count/With Diff Urgent
Comprehensive Metabolic Panel Urgent
06/24/24 06:44
Electrocardiogram (*1) Urgent
Reason for Study: Abdominal Pain
CT Abd/pelvis W Iv Cont Urgent
Comment:
Reason For Exam: Left upper abd pain
EKG- Treatment ONCE
0.9% Sodium Chloride 1000 ml [Nss] 1,000 ml IV BOLUS
06/24/24 07:08
CR Chest - 2 Views Urgent
Comment:
Reason For Exam: SOB, left lower chest pain
06/24/24 07:11
NT-proBNP Urgent
Troponin I Urgent
Abnormal Lab Results
06/24/24
06:32
RBC 3.77 L 10^6/uL
(4.20-5.40)
Hgb 11.0 L g/dL
(12.0-16.0)
Hct 34.3 L %
(37.0-47.0)
MCHC 32.1 L g/dL
(33.0-37.0)
BUN 24 H mg/dl
(7-17)
Glucose 119 H mg/dl
(70-99)
06/24/24 06:32
06/24/24 06:32
Vital Signs
Initial and Last Documented VS:
Initial Vital Signs
Temp Pulse Resp Pulse Ox
98 F 72 15 94
06/24/24 06:23 06/24/24 06:23 06/24/24 06:23 06/24/24 06:23
Last Documented Vital Signs
Temp Pulse Resp BP Pulse Ox
98 F 65 15 107/91 92
06/24/24 06:23 06/24/24 08:07 06/24/24 08:07 06/24/24 08:07 06/24/24 07:15
MDM/Problems Addressed
Differential Diagnosis Includes:
HPI and MDM Narrative:
83-year-old female presenting for evaluation of several days of diarrhea and nausea. Symptoms are resolving but she now has left upper abdominal pain. She denies chest pain. Pain is worse with certain movements but is not exertional. On exam,
she is mildly dry. Will start IV fluids. Heart regular rate and rhythm. He appears to be localized with palpation to her left and intercostal musculature. She is in no acute respiratory distress. Symptoms are more likely related to
musculoskeletal but given age and complaint, will obtain CT
Physical exam
General: Well appearing and non-toxic
HEENT: protecting airway. Mildly dry mucous membranes
Neck: appears supple
CV: No evidence of cyanosis. Regular rate and rhythm
Resp: No accessory muscle use. Lungs clear
Abd: Non-distended. Very mild left upper quadrant tenderness and tenderness to palpation intercostal musculature
Extremities: No deformities
Neuro: alert
Psych: Normal affect
Skin: Intact
Problems Addressed including Acute and Chronic Conditions affecting care:
1. Abdominal pain
Acuity: acute
Prognosis: stable
Details: Likely related to musculoskeletal pain but given age and complaint, will obtain CT
2. Dehydration
Acuity: acute
Prognosis: stable
Details: Will start IV fluid
Updates
Troponin and BNP negative. Chest x-ray clear. CT negative for acute pathology.
Differential Diagnosis (but not limited to): Musculoskeletal pain, colitis, splenomegaly
Testing considered: Troponin but symptoms are nonexertional
Drug therapy (if applicable): OTC meds, please see d/c instruction regarding Rx drugs
Amount and/or Complexity of Data Reviewed
Clinical info obtained from: Patient
External data reviewed: N/A
Labs I independently reviewed (but not limited to): Troponin negative, white blood cell count normal
Radiology: The CT scan was personally and independently reviewed. In addition, official CT report reviewed.
X-ray independently reviewed: Chest x-ray clear
Pulse Ox: not hypoxic
EKG independently reviewed: Sinus rhythm, normal axis, no STEMI
Rescue Instructor: N/A
Critical Care: N/A
Risk of Complication:
Social Determinants of health: Good social support
Discussed with other providers: N/A
Escalation of Care includes Admit/Obs: After being observed in the Emergency Department, pt stable for discharge.
Occasional wrong word or 'sound a like' substitutions may have occurred due to the inherent limitations of voice recognition software. Read the chart carefully and recognize, using context, where substitutions have occurred.
*Critical Care Note
Total Time (30-74mins, 75-104mins- exclusive of procedures): Not Applicable
ED Attending Note
-
Portions of this chart may have been created with voice recognition software.� Occasional wrong word or��sound alike� substitutions may have occurred due to the inherent limitations of voice recognition software.
Discharge Plan
Departure
Patient Disposition: Home (Routine Discharge)
Date of Disposition: 06/24/24
Time of Disposition: 09:24
Patient with high blood pressure during this ER visit?: No
Discharge Problem:
Abdominal pain
Instructions: Abdominal Pain
Prescriptions:
No Action
lisinopril 20 MG tablet
20 mg PO BID
amlodipine 5 MG tablet
5 mg PO DAILY
rosuvastatin 20 MG tablet
20 mg PO HS
potassium chloride 8 MEQ capsule, extended release
8 meq PO DAILY
fluoxetine 20 MG capsule
20 mg PO DAILY
quetiapine 25 mg Tablet
25 mg PO HS
Patient Comments:
11/22/2023: Pt unsure if taking, last filled 10/07/23 for 90 days
azelastine 137 mcg (0.1 %) Aerosol,[place]
1 spray intranasal BIDPRN PRN (Reason: allergies)
Rx Instructions:
both nostrils
levothyroxine 50 mcg tablet
50 mcg PO DAILY
gabapentin 300 mg capsule
600 mg PO HS
zolpidem 12.5 mg tablet,ext release multiphase
12.5 mg PO HSPRN PRN (Reason: sleep)
Patient Comments:
11/22/2023: last filled 11/18/23, 30 tabs for 30 days
sucralfate 1 gram Tablet
1 g PO ACHS Qty: 120 0RF
pantoprazole [Protonix] 40 mg tablet,delayed release (DR/EC)
40 mg PO BID Qty: 60 0RF
Rx Instructions:
twice daily for one month then follow with your doctor.
Referrals:
UNKNOWN - PT DOES,NOT KNOW [Family Provider] -
Activity Restrictions/Additional Instructions:
Please return for any worsening symptoms.
You may return at any time if you have further concerns.
Please follow up with your doctor at the first available appointment, preferably this week.
Thank you for choosing [facility].
Interventions
Interventions:
*Risk Screen - Suicide Last Done: 06/24/24 06:23
*General Assessment Last Done: 06/24/24 06:23
*Neglect/Abuse Screening Last Done: 06/24/24 06:23
*ED- Fall Risk Assessment Last Done: 06/24/24 06:23
*ED COVID-19 Vaccine History Last Done: 06/24/24 06:23
[facility] Assessment Last Done: 06/24/24 06:23
Discharge Date and Time
Print Language: SAMOAN
[2024-06-24] MEDS: NSS 1000 IV (06:53)
[2024-06-24 07:01] VITALS: BP 147/61
[2024-06-24 07:05] LABS: ALT (SGPT) 11 U/L (0-35); AST (SGOT) 21 U/L (14-36); Albumin 4.4 g/dl (3.5-5.0); Alkaline Phosphatase 96 U/L (38-126); Blood Urea Nitrogen 24 mg/dl (7-17); Calcium 10.1 mg/dl (8.4-10.2); Carbon Dioxide 22 mmol/L (22-30); Chloride 105 mmol/L (98-107); Estimated Creatinine Clearance 38 ml/min; Glucose 119 mg/dl (70-99); Potassium 4.1 mmol/L (3.5-5.1); Sodium 138 mmol/L (135-145); Total Bilirubin 0.8 mg/dl (0.2-1.3); Total Protein 6.9 g/dl (6.3-8.2)
[2024-06-24 07:42] LABS: NT-proBNP 34.8 pg/ml; Troponin I < 0.012 ng/ml
[2024-06-24 08:07] VITALS: BP 107/91
[2024-06-24 09:00] VITALS: BP 133/64
== END 2024-06-24 09:30 | disposition home or self-care (01) ==
LOC: EMR 06:18
PROVIDERS: Emergency Medicine; EMERGENCY PHYSICIAN Student in an Organized Health Care Education/Training Program
DX: R10.9 Unspecified abdominal pain (principal); I25.10 Atherosclerotic heart disease of native coronary artery without angina pectoris; I10 Essential (primary) hypertension; E78.00 Pure hypercholesterolemia, unspecified; E03.9 Hypothyroidism, unspecified; F41.8 Other specified anxiety disorders; Z87.442 Personal history of urinary calculi; Z90.49 Acquired absence of other specified parts of digestive tract; Z95.5 Presence of coronary angioplasty implant and graft; Z96.611 Presence of right artificial shoulder joint
CPT/HCPCS: 99284; 96360; 96361; 71046; 74177; 80053; 83880; 84484; 85025; 93005; Q9967

== ENCOUNTER 2024-11-11 16:07 | Emergency (ER) | payer OTHER, SELFPAY ==
[2024-11-11] VITALS (11 sets, daily range): BP systolic 73–105; BP diastolic 46–72; BMI 27.1
--- NOTE | 2024-11-11 16:24 | ED.GENMED ---
History of Present Illness
General
Chief Complaint: Change in Mental Status
Time Seen by Provider: 11/11/24 16:21
History of Present Illness
History of Present Illness:
84-year-old female with history of chronic back pain and, CAD, hypertension, hyperlipidemia presenting after a near syncopal episode. Patient arrives with daughter who notes that she used to use marijuana frequently, quit a few years ago.
Occasionally she will still 'take a hit 'from daughter's vape pen. They went out once a day and prior to entering the restaurant, she smoked from the vape pen. When they got to the restaurant and sat down, patient started to feel unwell. Daughter
notes that she looked like she was going to pass out and was explaining that she felt very 'high'. Medics were called and they noted the patient was hypotensive, administered fluids. Patient did not eat or drink prior to arrival. She currently
denies chest pain, difficulty breathing, fever or recent illness. She denies focal weakness or additional acute medical complaints
Past History
Past History
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
ED Past Surgical History: Appendectomy, Cardiac (Stents X 4), Cholecystectomy, Orthopedic (Right shoulder replacement), Urological and Other (tummy Tuck, Breast reduction)
Social History
Tobacco: Non-smoker
Alcohol: None
Drug: Marijuana
Personal:
Living: with family
Employment: Retired
Family History
Family History: Other (Noncontributory)
Phy Exam
Physical Exam
Physical Exam:
General: Well-appearing, no clinical signs of dehydration, nontoxic and in no acute distress
HEENT: protecting airway, extraocular movements intact, pupils equal and reactive
Neck: appears supple
CV: Normal heart rate, regular rhythm
Resp: No accessory muscle use, no increased work of breathing, lungs clear to auscultation bilaterally
Abd: Soft and non-distended, no tenderness to palpation
Extremities: No deformities, no swelling
Neuro: alert, no focal neurologic deficit
: deferred
Rectal: deferred
Psych: Normal affect
Skin: Intact
Course
Orders/Labs/Results
Orders:
Orders
11/11/24 16:21
0.9% Sodium Chloride 1000 ml [Nss] 1,000 ml IV BOLUS
11/11/24 16:22
Electrocardiogram (*1) Stat
Reason for Study: Syncope
Electrocardiogram (*1) Urgent
Reason for Study: Other
Other Reason for Exam: altered
CT Head W/o Iv Contrast Urgent
Comment:
Reason For Exam: Altered
EKG- Treatment ONCE
11/11/24 16:23
CBC/With Diff [Complete Blood Count/With Diff] Urgent
Comprehensive Metabolic Panel Urgent
Abnormal Lab Results
11/11/24
16:23
RBC 3.40 L 10^6/uL
(4.20-5.40)
Hgb 9.7 L g/dL
(12.0-16.0)
Hct 30.7 L %
(37.0-47.0)
MCHC 31.6 L g/dL
(33.0-37.0)
RDW 15.6 H %
(11.5-14.5)
Absolute Lymphs (auto) 3.7 H 10^3/uL
(1.2-3.4)
Neutrophils % 41.3 L %
(42.2-75.2)
Chloride 113 H mmol/L
(98-107)
Creatinine 1.1 H mg/dL
(0.6-1.0)
Glucose 130 H mg/dl
(70-99)
Calcium 7.8 L mg/dl
(8.4-10.2)
Total Protein 5.0 L g/dl
(6.3-8.2)
Albumin 3.0 L g/dl
(3.5-5.0)
11/11/24 16:23
11/11/24 16:23
Vital Signs
Initial and Last Documented VS:
Initial Vital Signs
Temp Pulse Resp BP Pulse Ox
97.9 F 98 16 73/50 92
11/11/24 16:10 11/11/24 16:10 11/11/24 16:10 11/11/24 16:10 11/11/24 16:10
Last Documented Vital Signs
Temp Pulse Resp BP Pulse Ox
97.9 F 69 15 105/46 93
11/11/24 16:10 11/11/24 19:47 11/11/24 18:15 11/11/24 19:47 11/11/24 16:29
MDM/Problems Addressed
MDM/Problems Addressed:
84-year-old female with history of chronic back pain, anxiety, hypertension, hyperlipidemia, CAD presenting for near syncope. Vital signs on arrival significant for hypotension.
On exam patient is awake, alert, oriented. No focal neurologic. She is somewhat slow to respond, however did smoke marijuana prior to arrival. Ultimately suspect dehydration with concomitant intoxication and marijuana as etiology of symptoms.
Patient reports that she feels 'high '. She has dry mucous membranes, consistent with dehydration, likely etiology of hypotension. Lower suspicion for central neurologic process such as stroke, in the absence of any neurologic findings on exam.
Patient afebrile, nontoxic, lower suspicion for systemic infection. Plan for laboratory analysis, cardiac monitoring, IV fluids and will also screen with CT brain imaging
18:20 -on reassessment patient is resting comfortably, unremarkable laboratory analysis. Pending CT imaging
20:00 -CT is negative. Patient ambulated and blood pressure has improved. She notes that she is feeling better. Continue to suspect the patient's symptoms were from drug intoxication. Feel stable for discharge. Advised against using the vape
pen again. Return precautions discussed and patient verbalized understanding
*Pulse Oximetry
SaO2: 93
Nasal Cannula flow liters per minute: 2
Oxygen Mode of Delivery: Room air
Patient hypoxic: no
*Critical Care Note
Total Time (30-74mins, 75-104mins- exclusive of procedures): Not Applicable
ED Attending Note
-
Portions of this chart may have been created with voice recognition software.� Occasional wrong word or��sound alike� substitutions may have occurred due to the inherent limitations of voice recognition software.
Discharge Plan
Departure
Prescriptions:
No Action
lisinopril 20 MG tablet
20 mg PO BID
amlodipine 5 MG tablet
5 mg PO DAILY
rosuvastatin 20 MG tablet
20 mg PO HS
potassium chloride 8 MEQ capsule, extended release
8 meq PO DAILY
fluoxetine 20 MG capsule
20 mg PO DAILY
quetiapine 25 mg Tablet
25 mg PO HS
Patient Comments:
11/22/2023: Pt unsure if taking, last filled 10/07/23 for 90 days
azelastine 137 mcg (0.1 %) Aerosol,[place]
1 spray intranasal BIDPRN PRN (Reason: allergies)
Rx Instructions:
both nostrils
levothyroxine 50 mcg tablet
50 mcg PO DAILY
gabapentin 300 mg capsule
600 mg PO HS
zolpidem 12.5 mg tablet,ext release multiphase
12.5 mg PO HSPRN PRN (Reason: sleep)
Patient Comments:
11/22/2023: last filled 11/18/23, 30 tabs for 30 days
sucralfate 1 gram Tablet
1 g PO ACHS Qty: 120 0RF
pantoprazole [Protonix] 40 mg tablet,delayed release (DR/EC)
40 mg PO BID Qty: 60 0RF
Rx Instructions:
twice daily for one month then follow with your doctor.
Referrals:
Francois Thomas MD [Primary Care Provider, Family Practice]
UNKNOWN,NO INTERVIEW [Family Provider]
Interventions
Interventions:
*Risk Screen - Suicide Last Done: 11/11/24 16:23
*General Assessment Last Done: 11/11/24 16:23
*Neglect/Abuse Screening Last Done: 11/11/24 16:23
*ED- Fall Risk Assessment Last Done: 11/11/24 16:23
*ED COVID-19 Vaccine History Last Done: 11/11/24 16:23
ED- Neurological Assessment Last Done: 11/11/24 16:18
ED Swallowing Screen Last Done: 11/11/24 19:57
Discharge Date and Time
Print Language: BELGIAN
[2024-11-11 16:29] LABS: Hematocrit 30.7 % (37.0-47.0); Hemoglobin 9.7 g/dL (12.0-16.0); Mean Corp Hgb Conc. 31.6 g/dL (33.0-37.0); Mean Corpuscular Volume 90.3 fL (81.0-99.0); Nucleated Red Blood Cells % 0 %; Platelet Count 243 10^3/uL (130-400); Red Cell Dist. Width 15.6 % (11.5-14.5)
[2024-11-11 16:41] LABS: ALT (SGPT) < 10 U/L (0-35); AST (SGOT) 16 U/L (14-36); Albumin 3.0 g/dl (3.5-5.0); Alkaline Phosphatase 82 U/L (38-126); Blood Urea Nitrogen 15 mg/dl (7-17); Calcium 7.8 mg/dl (8.4-10.2); Carbon Dioxide 22 mmol/L (22-30); Chloride 113 mmol/L (98-107); Estimated Creatinine Clearance 36 ml/min; Glucose 130 mg/dl (70-99); Potassium 4.2 mmol/L (3.5-5.1); Sodium 137 mmol/L (135-145); Total Protein 5.0 g/dl (6.3-8.2); eGFR 49.55
[2024-11-11] MEDS: NSS 1000 IV (17:09)
== END 2024-11-11 20:21 | disposition home or self-care (01) ==
LOC: EMR 16:07
PROVIDERS: EMERGENCY PHYSICIAN Student in an Organized Health Care Education/Training Program; PRIMARYCARE PHYSICIAN Family Medicine
DX: T50.905A Adverse effect of unspecified drugs, medicaments and biological substances, initial encounter (principal); R55 Syncope and collapse; Y92.9 Unspecified place or not applicable; R41.82 Altered mental status, unspecified; I25.10 Atherosclerotic heart disease of native coronary artery without angina pectoris; I10 Essential (primary) hypertension; E78.00 Pure hypercholesterolemia, unspecified; E03.9 Hypothyroidism, unspecified; F41.8 Other specified anxiety disorders; Z87.442 Personal history of urinary calculi; Z90.49 Acquired absence of other specified parts of digestive tract; Z95.5 Presence of coronary angioplasty implant and graft; Z96.611 Presence of right artificial shoulder joint
CPT/HCPCS: 99284; 96360; 96361; 70450; 80053; 85025; 93005

== ENCOUNTER 2024-12-15 14:09 | Emergency (ER) | payer OTHER, SELFPAY ==
[2024-12-15] VITALS (7 sets, daily range): BP systolic 144–175; BP diastolic 71–87; BMI 24.2
[2024-12-15 14:41] LABS: Hematocrit 38.1 % (37.0-47.0); Hemoglobin 12.5 g/dL (12.0-16.0); Mean Corp Hgb Conc. 32.8 g/dL (33.0-37.0); Mean Corpuscular Volume 85.4 fL (81.0-99.0); Nucleated Red Blood Cells % 0 %; Platelet Count 354 10^3/uL (130-400); Red Cell Dist. Width 15.4 % (11.5-14.5)
--- NOTE | 2024-12-15 14:44 | ED.GENMED ---
History of Present Illness
<Bronwyn Hernández CLINICAL PSYCHOLOGIST [facility] - Last Filed: 12/15/24 20:25>
General
Chief Complaint: Abdominal Symptoms
Source: patient
Exam Limitations: none
Time Seen by Provider: 12/15/24 14:42
Nursing documentation reviewed up to this point in time: agreed with
History of Present Illness
History of Present Illness:
84-year-old female with history of CAD, HTN, HLD, 4 cardiac stents, hypothyroid, anxiety/depression cholecystectomy, appendectomy presents with complaints of pain in her lower stomach, vomiting and non radiating mid chest pain. The symptoms began
last night and continued today. Feels nauseous now, has not vomited since arrival. The abdominal pain is described as constant and diffuse across the middle of the abdomen with a current intensity of 8 on a scale of 0 to 10. She is not sure if the
chest pain or the vomiting came first. Currently her chest pain is 8/10. She denies SOB, fever, diarrhea or constipation
Past History
<Bronwyn Hernández, CLINICAL PSYCHOLOGIST [facility] - Last Filed: 12/15/24 20:25>
Past History
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
ED Past Surgical History: Appendectomy, Cardiac (Stents X 4), Cholecystectomy, Orthopedic (Right shoulder replacement), Urological and Other (tummy Tuck, Breast reduction)
Social History
Tobacco: Non-smoker
Alcohol: None
Drug: Marijuana
Personal:
Living: with family
Employment: Retired
Family History
Family History: Other (Noncontributory)
Review of Systems
<Bronwyn Hernández CLINICAL PSYCHOLOGIST [facility] - Last Filed: 12/15/24 20:25>
Review of Systems
Allergies reviewed?: Yes
All Other Systems: ROS reviewed and negative except as documented in HPI and ROS
Phy Exam
<Bronwyn Hernández, CLINICAL PSYCHOLOGIST [facility] - Last Filed: 12/15/24 20:25>
Physical Exam
Physical Exam:
GENERAL: No acute distress. A&Ox3.
CONSTITUTIONAL: Afebrile.
EYES: clear, conjunctivae normal
ENMT: dry mucus membranes, Pharynx nl
RESPIRATORY: Regular respirations, nonlabored, lungs clear.
CARDIOVASCULAR: Regular rate and rhythm, no murmurs, no rubs.
GI: Soft, generally tender, normal BS
MUSCULOSKELETAL: Moves with ease. Well perfused. No edema
SKIN: Warm, dry, pink
PSYCH: Normal mood and affect. Well kept, interactive and appropriate
NEUROLOGIC: Awake, alert and oriented. No focal neurological deficits
Course
<Bronwyn Hernández, CLINICAL PSYCHOLOGIST [facility] - Last Filed: 12/15/24 20:25>
Orders/Labs/Results
Orders:
Orders
12/15/24 14:20
Electrocardiogram (*1) Urgent
Reason for Study: Abdominal Pain
12/15/24 14:21
EKG- Treatment ONCE
12/15/24 14:26
CMP [Comprehensive Metabolic Panel] Urgent
Complete Blood Count/With Diff Urgent
Lipase Urgent
Troponin I Urgent
12/15/24 14:54
CT Abd/Pel (IV only)-DH only Urgent
Comment:
Reason For Exam: generalized abd pain, vomiting
12/15/24 15:00
Ondansetron Injectable [Zofran] 4 mg IV NOW STA
12/15/24 15:01
0.9% Sodium Chloride 500 ml [Nss] 500 ml IV BOLUS
12/15/24 18:47
Pantoprazole [Protonix IV] 80 mg IV NOW STA
12/15/24 19:07
Diphenhydramine [Benadryl] 25 mg IV NOW STA
Prochlorperazine [Compazine] 10 mg IV NOW STA
12/15/24 19:13
Sterile Water [Sterile Water For Injection] 20 ml .ROUTE .STK-MED ONE
12/15/24 19:16
Prochlorperazine [Compazine] 10 mg .ROUTE .STK-MED ONE
12/15/24 19:32
Urinalysis Reflex To Culture Urgent
Date Specimen was Collected: 12/15/24
Time Specimen was Collected: 19:24
Urine Microscopic Reflex Cult Urgent
Abnormal Lab Results
12/15/24 12/15/24
14:26 19:32
MCHC 32.8 L g/dL
(33.0-37.0)
RDW 15.4 H %
(11.5-14.5)
Chloride 108 H mmol/L
(98-107)
Carbon Dioxide 19 L mmol/L
(22-30)
Glucose 148 H mg/dl
(70-99)
Calcium 10.8 H mg/dl
(8.4-10.2)
Alkaline Phosphatase 140 H U/L
(38-126)
Urine Ketones 1+ A
(Negative)
Urine Albumin (Reflex) 2+ A
(Neg - Trace)
12/15/24 14:26
12/15/24 14:26
Vital Signs
Initial and Last Documented VS:
Initial Vital Signs
Temp Pulse Resp BP Pulse Ox
97.8 F 94 21 155/80 99
12/15/24 14:15 12/15/24 14:15 12/15/24 14:15 12/15/24 14:15 12/15/24 14:15
Last Documented Vital Signs
Temp Pulse Resp BP Pulse Ox
97.8 F 88 19 175/87 94
12/15/24 14:15 12/15/24 20:00 12/15/24 19:15 12/15/24 19:00 12/15/24 19:45
<Thor Murillo Enzo, DO - Last Filed: 12/15/24 19:12>
Orders/Labs/Results
Orders:
Orders
12/15/24 14:20
Electrocardiogram (*1) Urgent
Reason for Study: Abdominal Pain
12/15/24 14:21
EKG- Treatment ONCE
12/15/24 14:26
CMP [Comprehensive Metabolic Panel] Urgent
Complete Blood Count/With Diff Urgent
Lipase Urgent
Troponin I Urgent
12/15/24 14:54
CT Abd/Pel (IV only)-DH only Urgent
Comment:
Reason For Exam: generalized abd pain, vomiting
12/15/24 15:00
Ondansetron Injectable [Zofran] 4 mg IV NOW STA
12/15/24 15:01
0.9% Sodium Chloride 500 ml [Nss] 500 ml IV BOLUS
12/15/24 18:47
Pantoprazole [Protonix IV] 80 mg IV NOW STA
12/15/24 19:07
Diphenhydramine [Benadryl] 25 mg IV NOW STA
Prochlorperazine [Compazine] 10 mg IV NOW STA
12/15/24 19:13
Sterile Water [Sterile Water For Injection] 20 ml .ROUTE .STK-MED ONE
12/15/24 19:16
Prochlorperazine [Compazine] 10 mg .ROUTE .STK-MED ONE
12/15/24 19:32
Urinalysis Reflex To Culture Urgent
Date Specimen was Collected: 12/15/24
Time Specimen was Collected: 19:24
Urine Microscopic Reflex Cult Urgent
Abnormal Lab Results
12/15/24 12/15/24
14:26 19:32
MCHC 32.8 L g/dL
(33.0-37.0)
RDW 15.4 H %
(11.5-14.5)
Chloride 108 H mmol/L
(98-107)
Carbon Dioxide 19 L mmol/L
(22-30)
Glucose 148 H mg/dl
(70-99)
Calcium 10.8 H mg/dl
(8.4-10.2)
Alkaline Phosphatase 140 H U/L
(38-126)
Urine Ketones 1+ A
(Negative)
Urine Albumin (Reflex) 2+ A
(Neg - Trace)
12/15/24 14:26
12/15/24 14:26
Vital Signs
Initial and Last Documented VS:
Initial Vital Signs
Temp Pulse Resp BP Pulse Ox
97.8 F 94 21 155/80 99
12/15/24 14:15 12/15/24 14:15 12/15/24 14:15 12/15/24 14:15 12/15/24 14:15
Last Documented Vital Signs
Temp Pulse Resp BP Pulse Ox
97.8 F 88 19 175/87 94
12/15/24 14:15 12/15/24 20:00 12/15/24 19:15 12/15/24 19:00 12/15/24 19:45
<Bronwyn Hernández, CLINICAL PSYCHOLOGIST [facility] - Last Filed: 12/15/24 20:25>
MDM/Problems Addressed
Differential Diagnosis Includes:
CA, acute gastritis, GERD, pancreatitis, gallbladder disease
MDM/Problems Addressed:
84-year-old female with history of CAD, HTN, HLD, 4 cardiac stents, hypothyroid, anxiety/depression cholecystectomy, appendectomy presents with complaints of pain in her lower stomach, vomiting and non radiating mid chest pain. The symptoms began
last night and continued today. Feels nauseous now, has not vomited since arrival. The abdominal pain is described as constant and diffuse across the middle of the abdomen with a current intensity of 8 on a scale of 0 to 10. She is not sure if the
chest pain or the vomiting came first. Currently her chest pain is 8/10. She denies SOB, fever, diarrhea or constipation
EKG: NSR
CBC with no clinically significant abnormality
CMP with no clinically significant abnormality
Troponin within normal limits
Lipase WNL
6:30 PM: CT abdomen pelvis with IV contrast radiology report read: No acute findings, nothing to explain patient's pain
Spoke with daughter in law who states pt was 'fine'yesterday.
Pt tells me the pain is 'burning pain' and when I told her I would be treating her for reflux/indigestion she states 'yeah that's what it feels like' she is not on any antacids.
Protonix ordered. Rx search reveals pt has been prescribed Protonix every month since June. She states she doesn't think she takes it but she doesn't know.
Case discussed with Dr. Giraldo who examined her, still nauseous, recommends another dose of antiemetic. Compazine and Benadryl ordered
Pt OOB and ambulated well, independently to BR.
U/A pending
8:15 p.m.
U/A neg
Patient nausea is improving.
I instructed her to look at her pills at home and if she does have Protonix to be sure she is taking it daily. I provided her with a prescription for #20 pills to fill in case she has no Protonix at home.
Instructed to follow-up with her doctor in 5 to 7 days.
Stable for discharge.
Chronic conditions affecting care: HTN and CAD
<Bronwyn Hernández CLINICAL PSYCHOLOGIST [facility] - Last Filed: 12/15/24 20:25>
*Pulse Oximetry
SaO2: 99
Oxygen Mode of Delivery: Room air
Patient hypoxic: no
*EKG
EKG Intrepretation Date: 12/15/24
Interpretation: normal
Heart Rate: 93
Rate: normal
Rhythm: sinus
[place]: normal axis
Interval: normal interval
QRS Pattern: normal QRS
Ischemia: no ischemia
*Critical Care Note
Total Time (30-74mins, 75-104mins- exclusive of procedures): Not Applicable
ED Attending Note
<Bronwyn Hernández CLINICAL PSYCHOLOGIST [facility] - Last Filed: 12/15/24 20:25>
-
Portions of this chart may have been created with voice recognition software.� Occasional wrong word or��sound alike� substitutions may have occurred due to the inherent limitations of voice recognition software.
<Thor Giraldo DO - Last Filed: 12/15/24 19:12>
ED Attending Note
Patient seen and examined by attending physician: Yes
I performed the substantive portion of visit, reviewed & personally made and approve the management plan that is documented in note by myself or KATIE.: Yes
ED Attending Note:
I evaluated the patient at bedside. CBC is unremarkable including normal white blood cell count. Bicarb is somewhat low at 19. She was given IV fluids. Lipase and LFTs unremarkable. CT imaging of the abdomen pelvis was obtained and reviewed.
The patient was initially given Zofran and fluids and then she was also given Reglan with Benadryl. We talked about the possibility of a viral syndrome/foodborne illness.
Discharge Plan
Departure
Patient Disposition: Home (Routine Discharge)
Date of Disposition: 12/15/24
Time of Disposition: 20:18
Patient with high blood pressure during this ER visit?: No
Condition: Good
Discharge Problem:
Abdominal pain, Chest pain due to GERD, GERD (gastroesophageal reflux disease)
Instructions: Acid reflux and GERD in adults - ED (DC), Abdominal Pain
Prescriptions:
New
pantoprazole [Protonix] 40 mg tablet,delayed release (DR/EC)
40 mg PO DAILY Qty: 20 0RF
No Action
lisinopril 20 MG tablet
20 mg PO BID
amlodipine 5 MG tablet
5 mg PO DAILY
rosuvastatin 20 MG tablet
20 mg PO HS
potassium chloride 8 MEQ capsule, extended release
8 meq PO DAILY
fluoxetine 20 MG capsule
20 mg PO DAILY
quetiapine 25 mg Tablet
25 mg PO HS
Patient Comments:
11/22/2023: Pt unsure if taking, last filled 10/07/23 for 90 days
azelastine 137 mcg (0.1 %) Aerosol,[place]
1 spray intranasal BIDPRN PRN (Reason: allergies)
Rx Instructions:
both nostrils
levothyroxine 50 mcg tablet
50 mcg PO DAILY
gabapentin 300 mg capsule
600 mg PO HS
zolpidem 12.5 mg tablet,ext release multiphase
12.5 mg PO HSPRN PRN (Reason: sleep)
Patient Comments:
11/22/2023: last filled 11/18/23, 30 tabs for 30 days
sucralfate 1 gram Tablet
1 g PO ACHS Qty: 120 0RF
pantoprazole [Protonix] 40 mg tablet,delayed release (DR/EC)
40 mg PO BID Qty: 60 0RF
Rx Instructions:
twice daily for one month then follow with your doctor.
Referrals:
Francois Thomas MD [Family Provider, Family Practice]
Activity Restrictions/Additional Instructions:
As we discussed, nothing worrisome in your workup here today.
I sent a prescription for Zofran to your pharmacy to use as needed for nausea
You have Protonix listed as one of your medications. Check your pills and make sure you are taking it.
If you don't find Protonix in your pills, get the prescription filled that I gave you. It is for Reflux.
See your primary doctor in 5-7 days for recheck if you are still nauseous.
Interventions
Interventions:
*Risk Screen - Suicide Last Done: 12/15/24 14:15
*General Assessment Last Done: 12/15/24 14:15
*Neglect/Abuse Screening Last Done: 12/15/24 14:15
*ED- Fall Risk Assessment Last Done: 12/15/24 14:15
*ED COVID-19 Vaccine History Last Done: 12/15/24 14:15
[facility] Assessment Last Done: 12/15/24 14:15
Discharge Date and Time
Print Language: [id number]
[2024-12-15 14:49] LABS: ALT (SGPT) 13 U/L (0-35); AST (SGOT) 23 U/L (14-36); Albumin 4.7 g/dl (3.5-5.0); Alkaline Phosphatase 140 U/L (38-126); Blood Urea Nitrogen 14 mg/dl (7-17); Calcium 10.8 mg/dl (8.4-10.2); Carbon Dioxide 19 mmol/L (22-30); Chloride 108 mmol/L (98-107); Estimated Creatinine Clearance 52 ml/min; Glucose 148 mg/dl (70-99); Lipase 111 U/L (23-300); Potassium 4.1 mmol/L (3.5-5.1); Sodium 138 mmol/L (135-145); Total Protein 7.4 g/dl (6.3-8.2); eGFR > 60.00
[2024-12-15 14:59] LABS: Troponin I 0.013 ng/ml
[2024-12-15] MEDS: NSS 500 IV (15:38)
[2024-12-15] MEDS: ZOFRAN 4 MG IV (15:38)
[2024-12-15] MEDS: COMPAZINE 10 MG IV (19:16)
[2024-12-15] MEDS: PROTONIX IV 80 MG IV (19:16)
[2024-12-15] MEDS: BENADRYL 25 MG IV (19:16)
[2024-12-15 19:38] LABS: Urine Character Clear (Clear)
[2024-12-15 19:59] LABS: Urine Red Blood Cell 0-2 /HPF (0-2)
== END 2024-12-15 20:48 | disposition home or self-care (01) ==
LOC: EMR 14:09
PROVIDERS: Registered Nurse; EMERGENCY PHYSICIAN Emergency Medicine; FAMILY PHYSICIAN Family Medicine
DX: R07.89 Other chest pain (principal); K21.9 Gastro-esophageal reflux disease without esophagitis; E03.9 Hypothyroidism, unspecified; E78.00 Pure hypercholesterolemia, unspecified; I10 Essential (primary) hypertension; I25.10 Atherosclerotic heart disease of native coronary artery without angina pectoris; Z90.49 Acquired absence of other specified parts of digestive tract; Z95.5 Presence of coronary angioplasty implant and graft; Z87.442 Personal history of urinary calculi
CPT/HCPCS: 96374; 96375; 96361; 99284; 74177; 80053; 81003; 81015; 83690; 84484; 85025; 93005; Q9967